=== PATIENT | male | born 1935 | race Caucasian/White ===

== ENCOUNTER 2017-03-15 11:24 | Inpatient (IN) ==
--- NOTE | 2017-03-15 11:40 | Emergency Department Note ---
Disposition Clinical Impression: Hypoxia Altered mental status Qualifiers: Altered mental status type: transient alteration of awareness Qualified Code(s) : R40.4 - Transient alteration of awareness Disposition: Admitted As Inpatient Condition: Fair Time of Disposition: 14:55 General Adult HPI - General Chief complaint: ED Altered Mental Status Stated complaint: AMS Time Seen by Provider: 03/15/17 11:29 Source: patient, EMS Mode of arrival: EMS Limitations: no limitations Nursing Notes Reviewed: Yes Vital Signs Reviewed: Yes - History of Present Illness HPI Narrative: Patient is a 81-year-old male with a past medical history of metastatic colon cancer, hypertension, diabetes, PID presenting to the emergency department by squad for altered mental status. According to squad while at home the patient was satting in the high 70's without oxygen is placed on oxygen and appears to have been improving since that time. On arrival to the ED the patient is alert and oriented 3. He states the reason he is coming to ED as His is only able to take care of him at home. He denies any complaints at this time other than diffuse pain which is cancer related. Pain Scale: 0 - Related Data Home Medications Medication Instructions Recorded Confirmed Aspirin Enteric Coated [Aspirin EC] 81 mg PO DAILY 02/16/17 03/15/17 Carvedilol [Coreg] 25 mg PO BID 02/16/17 03/15/17 Furosemide [Lasix] 20 mg PO DAILY 02/16/17 03/15/17 Losartan Potassium [Cozaar] 100 mg PO DAILY 02/16/17 03/15/17 Simvastatin [Zocor] 20 mg PO HS 02/16/17 03/15/17 amLODIPine [Norvasc] 5 mg PO DAILY 02/16/17 03/15/17 Previous Rx's Medication Instructions Recorded Docusate [Colace] 200 mg PO BID #120 capsule 03/03/17 Magic Mouthwash [Magic Mouthwash 10 ml PO QID PRN #240 ml 03/04/17 BLM] Saliva Stimulant [Biotene 44.3 ml MM TID #1 bottle 03/04/17 Moisturizing Rinse] Oxycodone HCl 10 - 20 mg PO Q4H PRN #150 tab 03/09/17 Allergies Allergy/AdvReac Type Severity Reaction Status Date / Time Penicillins Allergy Severe Hives Verified 03/15/17 15:24 sulfamethoxazole AdvReac Vomiting Verified 03/15/17 15:24 [From Bactrim] trimethoprim [From Bactrim] AdvReac Vomiting Verified 03/15/17 15:24 All systems ED: reviewed and negative except as stated. Review of Systems: As Per HPI Constitutional: Denies: fever Eyes: Denies: vision change ENT ED: Denies: throat pain, congestion Cardiovascular: Denies: chest pain, palpitations, dyspnea on exertion, edema, syncope Respiratory: Denies: cough, dyspnea, wheezes Gastrointestinal: Denies: abdominal pain, nausea, vomiting, diarrhea Genitourinary: Denies: dysuria Musculoskeletal: Denies: neck pain Integumentary: Denies: rash, abrasion Neurological: Denies: headache, weakness, numbness, paresthesias Past Medical History - Past Medical History Attestation: Yes The following information was validated with the patient. Medical history: Reports: cancer, diabetes, hyperlipidemia, hypertension, peripheral artery disease, other Psychiatric history: Reports: no psych history - Social History Smoking Status: Former smoker Smokeless Tobacco Status: No Alcohol use: Reports: occasionally Drug use: Reports: none Physical Exam Patient does not appear to be in acute distress at this time. He answers my questions appropriately. - General Limitations: no limitations General appearance: alert, in no apparent distress - Head Head exam: atraumatic, normocephalic, normal inspection - Eye Eye exam: Present: PERRL, EOMI - ENT ENT exam: normal exam, normal oropharynx, mucous membranes moist - Neck Neck exam: Present: normal inspection, full ROM, trachea midline. Absent: tenderness - Chest Chest inspection: Present: normal inspection, symmetric chest wall rise. Absent : tenderness - Respiratory Respiratory exam: Present: normal lung sounds bilaterally. Absent: respiratory distress, wheezes - Cardiovascular Cardiovascular exam: Present: regular rate, normal rhythm, normal heart sounds, +S1, +S2 - Abdominal Exam Abdominal exam: Present: soft, Non-Tender, normal bowel sounds - Extremities Exam Extremities exam: Present: normal inspection, full ROM, normal capillary refill. Absent: tenderness, pedal edema - Neurological Exam Neurological exam: Present: alert, oriented X3, CN II-XII intact - Expanded Neurological Exam Patient oriented to: Present: person, place, time Speech: Present: fluid speech Cranial nerves: EOM function (II, III, IV, ): Normal, facial sensation (V): Normal, facial palsy (VII): Normal, gag reflex (IX): Normal, spinal accessory function (XI): Normal, tongue deviation (XII): Normal Cerebellar function: finger to nose: Normal, heel to mauricio: Normal Motor strength - LUE: 5/5 Motor strength - RUE: 5/5 Motor strength - LLE: 5/5 Motor strength - RLE: 5/5 Sensory exam upper extremity: light touch: Normal Sensory exam lower extremity: light touch: Normal Coma Scale Eye Opening: Spontaneous Coma Scale Motor Response: Obeys Commands Coma Scale Verbal Response: Oriented Coma Scale Total: 15 - Psychiatric Psychiatric exam: Present: normal affect, normal mood - Skin Skin exam: Present: warm, dry, intact, normal color Course Course Narrative: Patient's is not bedside. I have discussed with her. She states that the patient was diagnosed with colon cancer 3 weeks ago with metastases to the liver and bone. She states that since the patient's diagnosis he has been declining. She states that he is having hallucinations daily, that is becoming more difficult for her to take care of on her own. She states that she is unable to move him from his bed to his chair and has had a call squad several times to help. She states that this morning the patient was having hallucinations and altered so she called squad in which they found his pulse ox to be in the low 80s and which the patient is not normally on any oxygen requirement. She states that the patient currently sees Dr. Denney for oncology and he was due for his fourth radiation treatment today. And altered mental status workup will be performed and also social work will be consulted. - Reevaluation(s) Reevaluation #1: Patient does go hypoxic when taken off oxygen and drops down to the low 80s/ upper 70s mostly when he is falling asleep. Patient's hemoglobin was 10.5 which is chronic and his creatinine was elevated at 2.3 which is also chronic when compared to old labs. His labs were otherwise unremarkable. His chest x- ray was negative. A VQ scan was performed due to the patient's kidney function which that showed low probability for PE. I discussed these results with the patient's family that have a cause for the patient's hypoxia at this time. The patient's family stress. They are unable to take care of the patient at home due to his declining condition which it should be to his cancer. I discussed plan to admit the patient for hypoxia, altered mental status, and inability to take care of the patient at home and the patient's family agrees with this plan. Time: 15:08 Vital Signs Temperature 98.1 F 03/15/17 11:25 Pulse Rate 80 03/15/17 11:25 Respiratory Rate 20 03/15/17 11:25 Blood Pressure 117/69 03/15/17 11:25 O2 Sat by Pulse Oximetry 96 03/15/17 11:25 Temperature 98.1 F 03/15/17 11:25 Pulse Rate 75 03/15/17 15:15 Respiratory Rate 20 03/15/17 15:15 Blood Pressure 134/65 03/15/17 15:15 O2 Sat by Pulse Oximetry 97 03/15/17 15:15 Oxygen Delivery Oxygen Delivery Nasal Cannula Medical Decision Making - Medical Records Medical records reviewed: Yes I reviewed the patient's medical records. - Lab Data Lab results reviewed: Yes I reviewed the patient's lab results. Result diagrams: 03/15/17 11:49 03/15/17 11:49 Lab Results 03/15/17 03/15/17 03/15/17 Range/Units 11:49 11:49 11:49 WBC 9.9 (4.3-11.1) K/mcL RBC 3.51 L (4.19-5.50) M/mcL Hgb 10.5 L (12.9-16.9) g/dL Hct 32.4 L (37.5-50.1) % MCV 92.3 (83.0-100.0) fL MCH 29.9 (28.0-33.3) pg MCHC 32.4 (31.6-35.5) g/dL RDW 14.6 H (11.5-14.5) % Plt Count 244 (140-400) K/mcL MPV 9.2 L (9.4-12.4) fL Immature Gran % 1.1 (0-4) % Seg Neutrophils % 79.2 % Lymphocytes % 9.8 % Monocytes % 8.7 % Eosinophils % 0.9 % Basophils % 0.3 % Neutrophils # 7.9 (1.6-8.9) K/mcL Lymphocytes # 1.0 (0.6-4.6) K/mcL Monocytes # 0.9 (0.0-1.3) K/mcL Eosinophils # 0.1 (0.0-0.6) K/mcL Basophils # 0.0 (0.0-0.2) K/mcL PT 12.4 H (9.4-12.1) Seconds INR 1.1 APTT 24.0 L (26.0-36.0) Seconds Sodium 138 (136-145) mEq/L Potassium 5.3 H (3.5-5.1) mEq/L Chloride 105 (98-107) mEq/L Carbon Dioxide 23 (23-29) mEq/L BUN 79 H (8-23) mg/dL Creatinine 2.35 H (0.70-1.30) mg/dL Est GFR ( Amer) 32 L (> 60) Est GFR (Non-Af Amer) 27 L (> 60) BUN/Creatinine Ratio 34 H (6-26) Glucose 232 H (70-105) mg/dL Calculated Osmolality 317 H (280-300) Calcium 8.0 L (8.6-10.3) mg/dL Total Bilirubin 0.9 (0.3-1.0) mg/dL Direct Bilirubin 0.3 H (0.0-0.2) mg/dL Indirect Bilirubin 0.6 (0.0-1.2) mg/dL AST 70 H (13-39) Units/L ALT 34 (7-52) Units/L Alkaline Phosphatase 71 (34-104) Units/L Troponin I (< 0.04) ng/mL Serum Total Protein 7.3 (6.4-8.9) g/dL Albumin 3.5 (3.5-5.7) g/dL Globulin 3.8 H (2.4-3.5) g/dL Albumin/Globulin Ratio 0.9 L (1.1-2.2) Urine Color (Yellow) Urine Clarity (Clear) Urine pH (5.0-8.0) pH Units Ur Specific [place] (1.010-1.025) Urine Protein (Neg-Trace) mg/dL Urine Glucose (UA) (Normal) mg/dL Urine Ketones (Negative) mg/dL Urine Blood (Negative) Urine Nitrite (Negative) Urine Bilirubin (Negative) Urine Urobilinogen (Normal) mg/dL Ur Leukocyte Esterase (Negative) Urine Microscopic RBC (0-3) per hpf Urine Microscopic WBC (0-3) per hpf Ur Squamous Epith Cells (None-Few) per lpf Urine Bacteria (None-Few) per hpf Hyaline Casts (None-Few) per lpf Ur Culture Indicated? (NO) 03/15/17 03/15/17 Range/Units 11:49 13:19 WBC (4.3-11.1) K/mcL RBC (4.19-5.50) M/mcL Hgb (12.9-16.9) g/dL Hct (37.5-50.1) % MCV (83.0-100.0) fL MCH (28.0-33.3) pg MCHC (31.6-35.5) g/dL RDW (11.5-14.5) % Plt Count (140-400) K/mcL MPV (9.4-12.4) fL Immature Gran % (0-4) % Seg Neutrophils % % Lymphocytes % % Monocytes % % Eosinophils % % Basophils % % Neutrophils # (1.6-8.9) K/mcL Lymphocytes # (0.6-4.6) K/mcL Monocytes # (0.0-1.3) K/mcL Eosinophils # (0.0-0.6) K/mcL Basophils # (0.0-0.2) K/mcL PT (9.4-12.1) Seconds INR APTT (26.0-36.0) Seconds Sodium (136-145) mEq/L Potassium (3.5-5.1) mEq/L Chloride (98-107) mEq/L Carbon Dioxide (23-29) mEq/L BUN (8-23) mg/dL Creatinine (0.70-1.30) mg/dL Est GFR ( Amer) (> 60) Est GFR (Non-Af Amer) (> 60) BUN/Creatinine Ratio (6-26) Glucose (70-105) mg/dL Calculated Osmolality (280-300) Calcium (8.6-10.3) mg/dL Total Bilirubin (0.3-1.0) mg/dL Direct Bilirubin (0.0-0.2) mg/dL Indirect Bilirubin (0.0-1.2) mg/dL AST (13-39) Units/L ALT (7-52) Units/L Alkaline Phosphatase (34-104) Units/L Troponin I 0.03 (< 0.04) ng/mL Serum Total Protein (6.4-8.9) g/dL Albumin (3.5-5.7) g/dL Globulin (2.4-3.5) g/dL Albumin/Globulin Ratio (1.1-2.2) Urine Color Yellow (Yellow) Urine Clarity Clear (Clear) Urine pH 5.5 (5.0-8.0) pH Units Ur Specific [place] 1.017 (1.010-1.025) Urine Protein Trace (Neg-Trace) mg/dL Urine Glucose (UA) Normal (Normal) mg/dL Urine Ketones Trace H (Negative) mg/dL Urine Blood Negative (Negative) Urine Nitrite Negative (Negative) Urine Bilirubin Small H (Negative) Urine Urobilinogen Normal (Normal) mg/dL Ur Leukocyte Esterase Negative (Negative) Urine Microscopic RBC 5-15 H (0-3) per hpf Urine Microscopic WBC 0-3 (0-3) per hpf Ur Squamous Epith Cells Moderate H (None-Few) per lpf Urine Bacteria None Seen (None-Few) per hpf Hyaline Casts None Seen (None-Few) per lpf Ur Culture Indicated? NO (NO) - Radiology Data Radiology results reviewed: Yes I reviewed the patient's radiology results. Chest X-Ray 03/15/17 11:34 IMPRESSION: No acute process. D/ / Mauricio Bell MD / Mauricio Bell MD Interpreting Provider: Mauricio Bell MD Head CT 03/15/17 11:35 IMPRESSION: No acute intracranial abnormality. Chronic small vessel disease. D/ / Aakash Alford MD / Aakash Alford MD Interpreting Provider: Aakash Alford MD Pulmonary Perfusion Imaging 03/15/17 13:29 IMPRESSION: Very low probability for pulmonary embolism. D/ / Dk Ny MD / Dk Ny MD Interpreting Provider: Dk Ny MD - EKG Data EKG #1 EKG attestation: Yes I reviewed and interpreted this EKG. EKG results narrative: Patient's EKG done at 11:42 shows sinus rhythm at a rate of 75 bpm. Normal axis. NH is 190, QRS is 94, QT is 442, and QTc is 471 these are within normal limits. No ST elevations, depressions or Q waves. No old EKG for comparison. Attestation Statement - Attestation Attestation: I examined this patient and my medical decision-making was reviewed with the Resident Physician. I agree with the documented findings, disposition and treatment plan as described except to the extent set forth below. Patient presents to the emergency department with generalized weakness. Low pulse ox. Confusion. EMS states his oxygen saturation was 80 on the arrived. Initially begun treatment for the colon cancer. Scheduled for radiation therapy today. Family is having trouble taking care of him at home. On examination he is awake alert and oriented 3 for us. Satting in the mid 90s on 2 L. Clear. Plan. Altered mental status workup. The patient is not altered here. His oxygenation improves with O2. VQ scan is very low probability for PE. Family unable to care from a home. We will admit for hypoxia and altered mental status.
[2017-03-15 12:04] LABS: Basophils % 0.3 %; Eosinophils # 0.1 K/mcL (0.0-0.6); Eosinophils % 0.9 %; Hematocrit 32.4 % (37.5-50.1); Hemoglobin 10.5 g/dL (12.9-16.9); Immature Granulocytes % 1.1 % (0-4); Lymphocytes % 9.8 %; Mean Corpuscular HGB Conc 32.4 g/dL (31.6-35.5); Mean Corpuscular Hemoglobin 29.9 pg (28.0-33.3); Mean Corpuscular Volume 92.3 fL (83.0-100.0); Mean Platelet Volume 9.2 fL (9.4-12.4); Monocytes # 0.9 K/mcL (0.0-1.3); Monocytes % 8.7 %; Neutrophils # 7.9 K/mcL (1.6-8.9); Platelet Count 244 K/mcL (140-400); Red Blood Count 3.51 M/mcL (4.19-5.50); Red Cell Distribution Width 14.6 % (11.5-14.5); Segmented Neutrophils % 79.2 %
[2017-03-15 12:10] LABS: INR 1.1; Prothrombin Time 12.4 Seconds (9.4-12.1)
[2017-03-15 12:19] LABS: Albumin 3.5 g/dL (3.5-5.7); Bilirubin,Direct 0.3 mg/dL (0.0-0.2); Bilirubin,Indirect 0.6 mg/dL (0.0-1.2); Bilirubin,Total 0.9 mg/dL (0.3-1.0); Potassium 5.3 mEq/L (3.5-5.1)
[2017-03-15 12:25] LABS: Albumin/Globulin Ratio 0.9 (1.1-2.2); Globulin 3.8 g/dL (2.4-3.5); Total Protein 7.3 g/dL (6.4-8.9)
[2017-03-15 13:28] LABS: Bilirubin,Urine Small (Negative); Blood,Urine Negative (Negative); Clarity,Urine Clear (Clear); Color,Urine Yellow (Yellow); Glucose,Urine (UA) Normal (Normal); Ketones,Urine Trace mg/dL (Negative); Leukocyte Esterase,Urine Negative (Negative); Nitrite,Urine Negative (Negative); PH,Urine 5.5 pH Units (5.0-8.0); Protein,Urine Trace mg/dL (Neg-Trace); Specific Gravity,Urine 1.017 (1.010-1.025); Urobilinogen,Urine Normal (Normal)
[2017-03-15 13:32] LABS: Bacteria,Urine None Seen per hpf (None-Few); Hyaline Casts,Urine None Seen per lpf (None-Few); Squamous Epithelial Cell,Urine Moderate per lpf (None-Few); WBC,Urine 0-3 per hpf (0-3)
[2017-03-15] MEDS ORDERED: *HR* OxyCODONE/APAP 10/325 TABLET PO STA (15:14)
[2017-03-15] MEDS ORDERED: Acetaminophen 325 MG TABLET PO PRN (20:49)
[2017-03-15] MEDS ORDERED: Ondansetron 4 MG/2 ML VIAL IVP PRN (20:49)
[2017-03-15] MEDS ORDERED: Naloxone 0.4 MG/ML INJ IVP PRN (20:49)
[2017-03-15] MEDS ORDERED: Magic Mouthwash 10 ML UD Cup PO PRN (20:55)
[2017-03-15] MEDS ORDERED: 0.9 % Sodium Chloride 1,000 ML IVC SCH (21:00)
[2017-03-15] MEDS ORDERED: Dextrose Gel 15 GM/37.5 ML TUBE PO PRN ×2 (21:04)
[2017-03-15] MEDS ORDERED: D5% in Water 1,000 ML IVC PRN (21:04)
[2017-03-15] MEDS ORDERED: *HR* Dextrose 50 % in Water (Syg) 50 ML SYRINGE IVP PRN (21:04)
--- NOTE | 2017-03-15 21:05 | Internal Med History&Physical ---
<Shayan Handy H - Last Filed: 03/15/17 22:28> Date of Encounter: 03/15/17 Internal Medicine - H&P: HPI History of present illness: Mr. Arguelles is a 81 year old male Internal Medicine - H&P: Meds Aspirin Enteric Coated [Aspirin EC] 81 mg PO DAILY 02/16/17 [History] Carvedilol [Coreg] 25 mg PO BID 02/16/17 [History] Furosemide [Lasix] 20 mg PO DAILY 02/16/17 [History] Losartan Potassium [Cozaar] 100 mg PO DAILY 02/16/17 [History] Simvastatin [Zocor] 20 mg PO HS 02/16/17 [History] amLODIPine [Norvasc] 5 mg PO DAILY 02/16/17 [History] Docusate [Colace] 200 mg PO BID #120 capsule 03/03/17 [Rx] Magic Mouthwash [Magic Mouthwash BLM] 10 ml PO QID PRN #240 ml 03/04/17 [Rx] Saliva Stimulant [Biotene Moisturizing Rinse] 44.3 ml MM TID #1 bottle 03/04/17 [Rx] Oxycodone HCl 10 - 20 mg PO Q4H PRN #150 tab 03/09/17 [Rx] 3 Allergy/AdvReac Type Severity Reaction Status Date / Time Penicillins Allergy Severe Hives Verified 03/15/17 15:24 sulfamethoxazole AdvReac Vomiting Verified 03/15/17 15:24 [From Bactrim] trimethoprim [From Bactrim] AdvReac Vomiting Verified 03/15/17 15:24 All Systems PM: A 10-system review of systems was performed and is negative for pertinent findings except as documented above in the HPI. - Constitutional Vitals: Temp Pulse Resp BP Pulse Ox 98.5 F 74 19 97/58 98 03/15/17 17:45 03/15/17 17:45 03/15/17 17:45 03/15/17 17:45 03/15/17 17:45 Internal Med - H&P Results - Labs CBC & Chem 7: 03/15/17 11:49 03/15/17 11:49 - Attending Attestation Acute metabolic encephalopathy possibly secondary to narcotics, possible aspiration pneumonitis/pneumonia Start Levaquin and Flagyl due to penicillin allergy and order CT scan of the chest, may discontinue antibiotics if no pneumonia days found Acute on chronic renal failure, consider possible obstruction, per Serrato catheter and continue IV fluids The patient will be admitted as inpatient, expected to stay more than 2 midnights. Full code for now. CODE STATUS will need to be reviewed with family in the morning Palliative care consulted, time spent on this admission 40 minutes. I have personally performed a face to face evaluation on this patient. I have reviewed and agree with the care plan. History and Exam by me shows: <IlyaAma Stephanie - Last Filed: 03/15/17 22:40> Date of Encounter: 03/15/17 Time of Encounter: 21:00 Assessment and Plan (1) Encephalopathy acute Current visit: Yes Status: Acute 1 patient was recently diagnosed with suspected colon cancer with metastasis to bone and liver approximately 3 weeks ago. He is being cared for by his at home patient is having some difficulty caring for patient on her own. CT of head was negative for any intracranial abnormalities Patient does see oncologist Dr. Denney. Upon reviewing notes it appears that he did decrease the patient's pain medication from Percocet to [place] since less sedating. 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 We will hold narcotics for now- Neuro checks Hypoxia is contributing factor CXR negative VQ scan low probability of PE Concerned for possible aspiration will obtain CT of chest will start on flagyl and levaquin, dt PCN allergy- DC if no pneumonia of CT -Aspiration precautions (2) Diabetes mellitus Current visit: Yes Status: Acute 1 Accu-Cheks q 6hrs with SSI NPO Qualifiers: Diabetes mellitus type: type 2 Diabetes mellitus complication status: with neurologic complications Diabetes mellitus complication detail: with unspecified neuropathy Diabetes mellitus specimen accessioner insulin use: with specimen accessioner use Qualified Code(s): E11.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 He is being followed by ID and oncology Dr. Denney. He is receiving radiation treatments to his right shoulder Since his diagnosis patient has continued to physically decline. He is unable to get up, has poor appetite his is his caregiver who is unable to lift or move the patient on her own. We will consult hospice social worker for discharge planning possible ECF placement We will consult palliative care concerning end-of-life needs as well as possible hospice Presently we will hold pain medication patient appears to be overly sedated at this time (4) Hyperkalemia Current visit: Yes Status: Acute Potassium is 5.3 no peaked T waves noted on EKG did doubt prolonged QTC. We will hold losartan for now will give gentle IV fluids overnight and recheck potassium Continuous cardiac monitoring (5) DVT prophylaxis Current visit: Yes Status: Acute Heparin subcutaneous (6) Apuji-zy-bceieyd kidney injury Current visit: Yes Status: Acute Creatinine presently 2.35-which has slowly climb over the past month Monitor intake and output and daily weights Avoid nephrotoxins Maintain MAP greater than [address] Serrato possible retention Give gentle IV fluids overnight Qualifiers: Acute renal failure type: unspecified Chronic kidney disease stage: stage 4 (severe) Qualified Code(s): N17.9 - Acute kidney failure, unspecified; N18.4 - Chronic kidney disease, stage 4 (severe); N18.4 - Chronic kidney disease , stage 4 (severe); N18.4 - Chronic kidney disease, stage 4 (severe); N18.4 - Chronic kidney disease, stage 4 (severe) Internal Medicine - H&P: HPI Chief complaint: AMS Admitted From: Emergency Dept Plans for Post Hospital Care: Home History of present illness: Mr. Arguelles is a 81 year old male with past medical history of arthritis DVT diabetes hyperlipidemia hypertension peripheral artery disease pulmonary embolus C Karm[place] carotid endarterectomy coronary artery bypass graft neuropathy metastatic colon cancer with liver and extensive bone metastases. Information is obtained from medical records due to patient's altered mental state. After review of records patient was diagnosed with probable metastatic colon cancer with liver and extensive bone metastases approximately 3 weeks ago. He is being treated by [facility] oncology Dr. Denney and has been receiving radiation treatments. He is being cared for at home by his . She expressed to the ER physician the patient has been declining since his diagnosis. He has been hallucinating and is difficult to care for on her own. She has had a call squad several times since she is unable to move him on her own. Today EMS was called due to patient's altered mental state. According to ER records upon their arrival patient was found with oxygen saturations in the 70s on room air. He was placed on oxygen which did improve his SPO2. Upon arrival to the ED he was alert and oriented. ER workup did reveal elevated creatinine however it seems to be around his baseline. He did have some hyperkalemia Chest x-rays were negative VQ scan was performed to rule out possible PE which was negative CT of head was negative for any intracranial abnormalities. EKG did reveal prolonged QTC at 471 The patient's oxygen saturation would continue to drop in oxygen removed. He has been admitted for further workup evaluation. Upon assessment patient is oriented to name and time he frequently comments that he is a home and has some difficulty staying awake during the conversation. Presently patient is hemodynamically stable Past Med Surg Social Fam HX - Past Medical History Medical history: cancer, diabetes, hyperlipidemia, hypertension, peripheral artery disease, other Psychiatric history: no psych history - Social History Smoking Status: Former smoker Smokeless Tobacco Status: No Alcohol use: occasionally Drug use: none - Family History Father Hx Family Cancer: Yes (liver cancer) ROS unobtainable: due to mental status All Systems PM: A 10-system review of systems was performed and is negative for pertinent findings except as documented above in the HPI. - Constitutional Vitals: Temp Pulse Resp BP Pulse Ox 98.5 F 74 19 97/58 98 03/15/17 17:45 03/15/17 17:45 03/15/17 17:45 03/15/17 17:45 03/15/17 17:45 General appearance: Present: A&O X 2 - Head Head exam: Present: atraumatic, normocephalic - Eye Eye exam: Present: PERRL, conjuntiva pink, sclera anicteric Pupils: Present: PERRL - Neck Neck exam general surgery: Present: supple, trachea midline. Absent: lymphadenopathy - Respiratory Respiratory exam: Present: CTAB. Absent: accessory muscle use, rales, rhonchi, wheezes - Cardiovascular Cardiovascular exam: Present: RRR, +S1, +S2. Absent: diastolic murmur, gallop, rubs, systolic murmur - GI/Abdominal GI/Abdominal exam: Present: normal bowel sounds, soft, no peritoneal signs. Absent: distended, tenderness - Extremities Exam Extremities exam: Present: warm, radial pulses palpable and symmetrical. Absent : calf tenderness, cyanotic, pedal edema - Neurological Exam Neurological exam: Present: CN II-XII intact, oriented X3, no focal deficits. Absent: pronater drift, facial droop, speech deficit - Skin Skin exam: Present: dry, intact Internal Med - H&P Results - Labs CBC & Chem 7: 03/15/17 11:49 03/15/17 11:49 - EKG Data EKG shows normal: sinus rhythm - EKG Data Prior EKG available for review: no EKG comments: 03/15/17 21:21 QTC 471 - Diagnostic Studies Other Images Additional comments: Chest X-Ray 03/15/17 11:34 IMPRESSION: No acute process. D/ / Mauricio Bell MD / Mauricio Bell MD Interpreting Provider: Mauricio Bell MD Head CT 03/15/17 11:35 IMPRESSION: No acute intracranial abnormality. Chronic small vessel disease. D/ / Aakash Alford MD / Aakash Alford MD Interpreting Provider: Aakash Alford MD Pulmonary Perfusion Imaging 03/15/17 13:29 IMPRESSION: Very low probability for pulmonary embolism. D/ / Dk Ny MD / Dk Ny MD Interpreting Provider: Dk Ny MD
[2017-03-15] MEDS ORDERED: Levofloxacin 750 MG/150 ML 750 MG/150 ML BAG IVPB SCH (23:00)
[2017-03-15] MEDS: Saliva Stimulant 100ml BOTTLE MM SCH (23:06)
[2017-03-16] MEDS: Insulin LISPRO 300 UNITS/3 ML VIAL SQ SCH ×4 (01:27→18:06)
[2017-03-16] MEDS: MetroNIDAZOLE 500 MG/100 ML 500 MG/100 ML BAG IVPB SCH ×3 (01:27→18:06)
[2017-03-16 07:13] LABS: Basophils % 0.1 %; Eosinophils % 0.2 %; Hematocrit 30.2 % (37.5-50.1); Hemoglobin 9.6 g/dL (12.9-16.9); Immature Granulocytes % 0.8 % (0-4); Lymphocytes # 0.8 K/mcL (0.6-4.6); Lymphocytes % 8.4 %; Mean Corpuscular HGB Conc 31.8 g/dL (31.6-35.5); Mean Corpuscular Hemoglobin 29.2 pg (28.0-33.3); Mean Corpuscular Volume 91.8 fL (83.0-100.0); Mean Platelet Volume 9.7 fL (9.4-12.4); Monocytes # 0.9 K/mcL (0.0-1.3); Monocytes % 9.7 %; Neutrophils # 7.4 K/mcL (1.6-8.9); Nucleated Red Blood Cells 0.2 /100 WBC (0); Platelet Count 236 K/mcL (140-400); Red Blood Count 3.29 M/mcL (4.19-5.50); Red Cell Distribution Width 14.9 % (11.5-14.5); Segmented Neutrophils % 80.8 %
[2017-03-16] MEDS ORDERED: Insulin LISPRO 300 UNITS/3 ML VIAL SQ SCH ×2 (07:30→21:00)
[2017-03-16 07:34] LABS: Calcium 7.6 mg/dL (8.6-10.3); Magnesium 2.9 mg/dL (1.6-2.6); Potassium 5.6 mEq/L (3.5-5.1)
[2017-03-16] MEDS: *HR* Heparin 5,000 UNIT/ML VIAL SQ SCH ×2 (07:52→18:06)
--- NOTE | 2017-03-16 08:37 | Palliative - Consult Note ---
<Don Gallegos - Last Filed: 03/16/17 09:57> Date of Encounter: 03/16/17 Time of Encounter: 08:37 - Assessment and Plan (1) Goals of care, counseling/discussion Current Visit: Yes Status: Acute Assessment and plan: Discussed with patient and /daughter over phone. Living Will filed with Dr. Denney, Oncology Code: Patient deferred discussion to (POA), reports patient doesn't want resuscitation, code status changed from Full Code to [id number]-DNI. Prior status: prior to acute change in mental status (more confused and hallucinations), was sharp and managing own medications and bills. ADLs were on his own with walker. Current status: more confused per family members and hallucinating Pain: Pain of back, right ribs/chest, and shoulders. Was prescribed oxycodone 10-20mg q4h prn, but reportedly from family patient has not been taking this medication, patient is unsure he took any pain medication recently. No current pain medication ordered while in hospital, patient otherwise appears comfortable laying in bed. Bowels: Regular bowel movements, not diarrhea, current bowel regimen ordered Family has expressed that they are unable to care for the patient at home anymore and the patient has expressed to them he would like to be in a fci. He has verbally expressed to me that he doesn't like them pulling/ tugging on him anymore. Reportedly prefers [facility] fci. (2) Altered mental status Current Visit: Yes Status: Acute Assessment and plan: Likely secondary to hypoxia, also resulting hallucinations vs acute on chronic kidney disease stage 4. Unlikely due to pain medication as patient mentioned he didn't take any and consistent with family report that he hasn't been taking any of the Oxycodone prescribed for pain. So far workup for hypoxia essentially negative and AMS has improved back to baseline just prior to admission, but is a change from baseline from a couple weeks ago. Continue workup per hospitalist. Qualifiers: Altered mental status type: transient alteration of awareness Qualified Code(s): R40.4 - Transient alteration of awareness (3) Colon cancer metastasized to multiple sites Current Visit: Yes Status: Acute Assessment and plan: Known history of colon cancer with mets to liver and bone. CT chest confirmed bony metastases and consistent with chest pain on exam. Was undergoing pallative radiation per Dr. Denney, family has expressed he has undergone 3 of 5 treatments with some improvement in shoulder pain. (4) Lppdp-bk-offuvhe kidney injury Current Visit: Yes Status: Acute Assessment and plan: Acute on chronic kidney disease stage 4. Continue per hospitalist. Qualifiers: Acute renal failure type: unspecified Chronic kidney disease stage: stage 4 (severe) Qualified Code(s): N17.9 - Acute kidney failure, unspecified; N18.4 - Chronic kidney disease, stage 4 (severe); N18.4 - Chronic kidney disease , stage 4 (severe); N18.4 - Chronic kidney disease, stage 4 (severe); N18.4 - Chronic kidney disease, stage 4 (severe) (5) Hyperkalemia, diminished renal excretion Current Visit: Yes Status: Acute Assessment and plan: Elevated at 5.6, likely secondary to ckd. Continue per hospitalist. (6) History of prostate cancer Current Visit: Yes Status: Chronic Palliative-CN HPI - Data of Consult Consult date: 03/15/17 Requesting Physician: Erasmo Bee MD Primary Care Provider: Brea Franco - Consult Narrative Reason for consult: Goals of care/code History of present illness: Mr. Arguelles is a 81 year old male with history of colon cancer with mets to liver and bone diagnosed Feb 2017 undergoing radiation therapy per Dr. Denney, hx of previous prostate cancer in 2000, CABG, hx of PE/dvt, peripheral artery disease, CAD s/p CABG, neuropathy, hld, htn, and diabetes who presented to the ED via EMS for altered mental status. Spoke with patient at bedside this morning, appears to be alert and oriented x4, but confused on questioning, unable to answer questions consistently and appropriately. Patient reports doing well overnight, no new problems other than soiling himself. Asked the patient if he called the nurse, reportedly did, but alarm and nurse were not notified. Patient reports he lives at home with his Gustavo. On questioning was uncertain if he had anything to eat or if he slept at all last night. He does report back pain and shoulder pain that is achy to sharp/stabbing at times. He was unsure if he was taking any pain medication at home for this. Patient has deferred questions about code status over to his . Spoke to his (Lauryn) and daughter (Laina) over the phone this morning, will be dropping by to visit later this morning. They report the patient was doing well a couple weeks ago, was mentally sharp and active around the house rebuilding electrical equipment and lifts, using walker to ambulate. Reports a sudden change in mental status where he is more confused and hallucinating over the past week. Before this change he was also managing his own medications and bills as well. They have mentioned that though the pain medication was filled, which is consistent with OARRS, oxycodone 10-20mg q4h prn, the patient has not been taking the medication and reports he hasn't taken any over the past couple days. They report he has been hallucinating people and mice on the [place], even bizarre hallucination of a wire that may cut off their head. and daughter's main concern is why the change in mental status, the hallucinating, and now the problem with oxygenation. Additional goal of maintaining a hospital stay long enough to qualify for fci care as they are unable to care for him at home and patient has expressed he doesn't like them pulling/tugging him at home. reports that they have the patient's living will at Dr. Denney's office. Confirmed that they have had the discussion and the patient would not want cpr/ intubation. Confirmed code status which has been changed to DNR-CCA-DNI. CC: Erasmo Bee MD Past Med Surg Social Fam HX - Past Medical History Medical history: cancer, diabetes, hyperlipidemia, hypertension, peripheral artery disease, other Psychiatric history: no psych history - Social History Smoking Status: Former smoker Smokeless Tobacco Status: No Alcohol use: occasionally Drug use: none - Family History Father Hx Family Cancer: Yes (liver cancer) Medications and Allergies Aspirin Enteric Coated [Aspirin EC] 81 mg PO DAILY 02/16/17 [History] Carvedilol [Coreg] 25 mg PO BID 02/16/17 [History] Furosemide [Lasix] 20 mg PO DAILY 02/16/17 [History] Losartan Potassium [Cozaar] 100 mg PO DAILY 02/16/17 [History] Simvastatin [Zocor] 20 mg PO HS 02/16/17 [History] amLODIPine [Norvasc] 5 mg PO DAILY 02/16/17 [History] Docusate [Colace] 200 mg PO BID #120 capsule 03/03/17 [Rx] Magic Mouthwash [Magic Mouthwash BLM] 10 ml PO QID PRN #240 ml 03/04/17 [Rx] Saliva Stimulant [Biotene Moisturizing Rinse] 44.3 ml MM TID #1 bottle 03/04/17 [Rx] Oxycodone HCl 10 - 20 mg PO Q4H PRN #150 tab 03/09/17 [Rx] 3 Allergy/AdvReac Type Severity Reaction Status Date / Time Penicillins Allergy Severe Hives Verified 03/15/17 15:24 sulfamethoxazole AdvReac Vomiting Verified 03/15/17 15:24 [From Bactrim] trimethoprim [From Bactrim] AdvReac Vomiting Verified 03/15/17 15:24 ROS unobtainable: due to mental status Palliative Care-Exam - Constitutional Vitals: Temp Pulse Resp BP Pulse Ox 97.3 F L 100 16 109/61 91 03/16/17 07:45 03/16/17 07:45 03/16/17 07:45 03/16/17 07:45 03/16/17 07:45 General appearance: Present: no acute distress Exam: alert and oriented x 4, but inconsistent and inappropriate answers to some questioning. - Head Head Exam: Present: atraumatic, normal inspection, normocephalic - Eye Eye exam: Present: EOMI, PERRL - ENT ENT exam: Present: mucous membranes dry, normal external ear exam Additional comments: thrush noted - Neck Neck exam: Present: full ROM. Absent: tenderness - Respiratory Respiratory exam: Present: chest wall tenderness (chest wall tenderness to palpation on right upper, Left nontender), CTAB. Absent: rales, rhonchi, wheezes, tachypnea - Cardiovascular Cardiovascular exam: Present: RRR, +S1, +S2 - GI/Abdominal Exam GI/Abdominal exam: Present: normal bowel sounds, soft. Absent: tenderness - Catheter Type: Urethral (Serrato) - Extremities Exam Extremities exam: Present: normal inspection. Absent: pedal edema - Back Exam Back exam: Present: paraspinal tenderness, vertebral tenderness - Neurological Exam Neurological exam: Present: alert (but confused), oriented X3 (but confused), strengths equal and symetr throughout - Psychiatric Psychiatric exam: Present: normal affect, normal mood - Skin Skin exam: Present: dry, intact, normal color, warm Internal Medicine - CN: Reslt - Labs CBC & Chem 7: 03/16/17 05:45 03/16/17 05:45 Labs: Short CBC 03/16/17 Range/Units 05:45 WBC 9.2 (4.3-11.1) K/mcL Hgb 9.6 L (12.9-16.9) g/dL Hct 30.2 L (37.5-50.1) % Plt Count 236 (140-400) K/mcL Neutrophils # 7.4 (1.6-8.9) K/mcL BMP 03/16/17 05:45 Sodium 137 Potassium 5.6 H Chloride 106 Carbon Dioxide 22 L BUN 89 H Creatinine 2.64 H Glucose 98 Calcium 7.6 L - ABG Interpretation ABG results: PT/INR, D-dimer PT 12.4 Seconds (9.4-12.1) H 03/15/17 11:49 Consult Discharge Plan - Plan Referrals: Brea Franco [Primary Care Provider] - Palliative Quality Palliative Quality: Screen for Code Status: Yes, Screen for Goals of Care: Yes, Screen for Pain: Yes, If Pain Regimen Started, Initiate Bowel Regimen: Yes, Screen for Nausea/Vomitting: Yes <Ravindra Mills - Last Filed: 03/16/17 11:13> Date of Encounter: 03/16/17 - Assessment and Plan (1) Encephalopathy acute Current Visit: Yes Status: Acute Assessment and plan: As noted by hospitalist this is undoubtedly multifactorial. However our investigation reveals the patient's been off his pain meds possibly for several days at least more than 24-48 hours. Therefore I would recommend if the patient is having pain that he be restarted at a lower dose of his oxycodone perhaps 5 mg every 4 hours when necessary. Palliative-CN HPI - Data of Consult Requesting Physician: Erasmo Bee MD Primary Care Provider: Brea Franco - Consult Narrative History of present illness: Mr. Arguelles is a 81 year old male CC: Erasmo Bee MD Palliative Care-Exam - Constitutional Vitals: Temp Pulse Resp BP Pulse Ox 97.3 F L 100 16 109/61 91 03/16/17 07:45 03/16/17 07:45 03/16/17 07:45 03/16/17 07:45 03/16/17 07:45 Internal Medicine - CN: Reslt - Labs CBC & Chem 7: 03/16/17 05:45 03/16/17 05:45 Labs: Short CBC 03/16/17 Range/Units 05:45 WBC 9.2 (4.3-11.1) K/mcL Hgb 9.6 L (12.9-16.9) g/dL Hct 30.2 L (37.5-50.1) % Plt Count 236 (140-400) K/mcL Neutrophils # 7.4 (1.6-8.9) K/mcL BMP 03/16/17 05:45 Sodium 137 Potassium 5.6 H Chloride 106 Carbon Dioxide 22 L BUN 89 H Creatinine 2.64 H Glucose 98 Calcium 7.6 L - ABG Interpretation ABG results: PT/INR, D-dimer PT 12.4 Seconds (9.4-12.1) H 03/15/17 11:49 - Attending Attestation I examined this patient and my medical decision-making was reviewed with the Resident Physician. I agree with the documented findings, disposition and treatment plan as described except to the extent set forth below. Palliative Quality Code Status: 03/16/17 09:13 CODE [Resuscitation Status: Active] [RES] Routine Comment: confirmed 03/16/17 Resuscitation Status: [id number]
[2017-03-16] MEDS ORDERED: amLODIPine 5 MG TABLET PO SCH (09:00)
[2017-03-16] MEDS: Aspirin Enteric Coated 81 MG Tablet PO SCH (09:39)
[2017-03-16] MEDS: Saliva Stimulant 100ml BOTTLE MM SCH ×3 (09:39→22:03)
--- NOTE | 2017-03-16 10:39 | Electrocardiograph Report ---
[facility] Test Date: 2017-03-15 Pat Name: Lopez Arguelles Department: 104 Room: 3B41 Gender: M [employer] Workforce Developer And Manager: LINDA : 1935 Requested By: Abel Goldberg Order Number: [id number] Ze MD: Jamin Hoskins MD Measurements Intervals [place] Rate: 75 P: 42 MA: 190 QRS: -15 QRSD: 94 T: 13 QT: 442 QTc: 471 Interpretive Statements SINUS RHYTHM PROLONGED QT INTERVAL Electronically Signed On 03-16-2017 10:37:44 EST by Jamin Hoskins MD
--- NOTE | 2017-03-16 18:10 | Internal Med Progress Note ---
Date of Encounter: 03/16/17 Time of Encounter: 11:00 - Assessment and plan (1) Colon cancer metastasized to multiple sites Current Visit: Yes Status: Acute Assessment and plan: -Patient with history of colon cancer with metastases to liver and bone managed by Dr. Denney (hematology/oncology) (2) Bone metastases Current Visit: No Status: Acute Assessment and plan: -Patient with history of colon cancer with metastases to liver and bone managed by Dr. Denney (hematology/oncology) (3) Goals of care, counseling/discussion Current Visit: Yes Status: Acute Assessment and plan: -Discussed with family about goals of care as in the discussion additional testing came up. -Consult hematology oncology for discussion about any further management or testing that will be needed. (4) DVT prophylaxis Current Visit: Yes Status: Acute Assessment and plan: Heparin subcutaneous - Subjective Interval history: Patient resting comfortably in bed this afternoon on examination. - Constitutional Vitals: Temp Pulse Resp BP Pulse Ox 97.5 F L 76 19 96/50 93 03/16/17 15:43 03/16/17 15:43 03/16/17 15:43 03/16/17 15:43 03/16/17 15:43 General appearance: Present: A&O X 2 - Respiratory Respiratory exam: Present: CTAB. Absent: accessory muscle use, rales, rhonchi, wheezes - Cardiovascular Cardiovascular exam: Present: RRR, +S1, +S2. Absent: diastolic murmur, gallop, rubs, systolic murmur Internal Medicine: Result - Labs CBC & Chem 7: 03/16/17 05:45 03/16/17 05:45 Labs: Short CBC 03/16/17 Range/Units 05:45 WBC 9.2 (4.3-11.1) K/mcL Hgb 9.6 L (12.9-16.9) g/dL Hct 30.2 L (37.5-50.1) % Plt Count 236 (140-400) K/mcL Neutrophils # 7.4 (1.6-8.9) K/mcL BMP 03/16/17 05:45 Sodium 137 Potassium 5.6 H Chloride 106 Carbon Dioxide 22 L BUN 89 H Creatinine 2.64 H Glucose 98 Calcium 7.6 L - ABG Interpretation ABG results: PT/INR, D-dimer PT 12.4 Seconds (9.4-12.1) H 03/15/17 11:49 Consult Discharge Plan - Plan Referrals: Brea Franco [Primary Care Provider] -
[2017-03-16] MEDS: *HR* OxyCODONE Immed Rel 5 MG TABLET PO PRN (18:31)
[2017-03-17] MEDS: MetroNIDAZOLE 500 MG/100 ML 500 MG/100 ML BAG IVPB SCH ×4 (00:22→23:30)
[2017-03-17] MEDS: Insulin LISPRO 300 UNITS/3 ML VIAL SQ SCH ×4 (00:23→18:29)
[2017-03-17] MEDS: *HR* Heparin 5,000 UNIT/ML VIAL SQ SCH ×2 (06:17→18:32)
[2017-03-17] MEDS: *HR* Promethazine 25 MG/ML VIAL IVP PRN (09:17)
[2017-03-17] MEDS: Aspirin Enteric Coated 81 MG Tablet PO SCH (09:18)
--- NOTE | 2017-03-17 11:01 | Oncology Inp Progress Note ---
Date of Encounter: 03/17/17 Time of Encounter: 15:00 Oncology: Subj Interval history: Patient drowsy at this time, likely due to phenergan/pain medication administration, will arouse to stimulation momentarily but quickly falls back to sleep. Patients and daughter at bedside. - Constitutional Vitals: Vital Signs Temp Pulse Resp BP Pulse Ox 03/17/17 07:09 98.7 F 96 16 102/53 95 03/17/17 03:46 97.8 F 102 15 104/40 96 03/16/17 23:42 98.4 F 77 20 92/49 92 03/16/17 21:00 90 03/16/17 20:54 97.6 F 75 20 92/51 90 03/16/17 20:53 85/39 03/16/17 15:43 97.5 F L 76 19 96/50 93 03/16/17 11:49 98.1 F 75 19 117/55 92 Intake and Output 03/16/17 03/17/17 03/17/17 23:59 07:59 15:59 Intake Total 100 / 100 100 / 100 120 / 120 Output Total 300 / 300 0 / 0 Balance -200 / -200 100 / 100 120 / 120 Intake: IV Fluids 100 / 100 100 / 100 Flagyl Premix 500 MG/100 ML 500 100 / 100 100 / 100 mg In 100 ml @ 100 mls/hr IVPB Q8HR [facility] Rx#:[id number] Oral 0 / 0 120 / 120 Output: Urine 0 / 0 Catheter 300 / 300 Other: Meal Breakfast Percent of Meal Consumed 20% Stool Size Small Stool Consistency soft formed Stool Color Brown # Urine Diapers 0 # Bowel Movements 1 Weight 87.9 kg Blood Glucose* 206 141 Patient Weight 03/17/17 23:59 Weight 87.9 kg General appearance: no acute distress, no febrile - Head Head exam: Present: normal inspection - Eye Eye exam: Present: PERRL - Respiratory Respiratory exam: Present: CTAB. Absent: respiratory distress - Cardiovascular Cardiovascular exam: Present: RRR, +S1, +S2 - GI/Abdominal GI/Abdominal exam: Present: normal bowel sounds, soft. Absent: tenderness - Extremities Exam Extremities exam: Present: pedal edema Oncology: Obj Data - Labs CBC & Chem 7: 03/16/17 05:45 03/16/17 05:45 Labs: Laboratory Results - last 24 hr 03/16/17 03/16/17 03/16/17 07:11 12:18 16:12 POC Glucose 201 H 115 H 225 H 03/16/17 03/17/17 23:31 05:37 POC Glucose 206 H 141 H - ABG Interpretation ABG results: PT/INR, D-dimer PT 12.4 Seconds (9.4-12.1) H 03/15/17 11:49 Consult Discharge Plan - Plan Referrals: Brea Franco [Primary Care Provider] -
[2017-03-17] MEDS: *HR* OxyCODONE Immed Rel 5 MG TABLET PO PRN (11:07)
--- NOTE | 2017-03-17 12:10 | Palliative Progress Note ---
Date of Encounter: 03/17/17 Time of Encounter: 12:00 - Assessment and plan (1) Goals of care, counseling/discussion Current Visit: Yes Status: Acute Assessment and plan: Patient is DNRCC - A, DNI. Discussed case with Eduarda Magana from Oncology. Oncology to discuss goals of care for treatment with patient and family. Will await outcome of patient and family desires. Patient actively participating in Physical Therapy. (2) Altered mental status Current Visit: No Status: Acute Assessment and plan: Patient participated in therapy and tolerated with pain to neck and shoulders. Will likely need ECF for therapy at [place]. Qualifiers: Altered mental status type: transient alteration of awareness Qualified Code(s): R40.4 - Transient alteration of awareness (3) Colon cancer metastasized to multiple sites Current Visit: Yes Status: Acute Assessment and plan: Oncology consult completed. Family to make decision regarding treatment. - Time Spent With Patient Total time spent is greater than 50% in coordination of care (as documented) at patient's floor/unit and/or counseling patient: less than 15 minutes - Subjective Interval history: Patient in bed, just completed PT. Tolerated with stiffness and pain to neck and shoulders. Patient able to answer questions. - Constitutional Vitals: Abnormal lab results RBC 3.29 M/mcL (4.19-5.50) L 03/16/17 05:45 Hgb 9.6 g/dL (12.9-16.9) L 03/16/17 05:45 Hct 30.2 % (37.5-50.1) L 03/16/17 05:45 RDW 14.9 % (11.5-14.5) H 03/16/17 05:45 Nucleated RBCs/100 WBC 0.2 /100 WBC (0) H 03/16/17 05:45 PT 12.4 Seconds (9.4-12.1) H 03/15/17 11:49 APTT 24.0 Seconds (26.0-36.0) L 03/15/17 11:49 Potassium 5.6 mEq/L (3.5-5.1) H 03/16/17 05:45 Carbon Dioxide 22 mEq/L (23-29) L 03/16/17 05:45 BUN 89 mg/dL (8-23) H 03/16/17 05:45 Creatinine 2.64 mg/dL (0.70-1.30) H 03/16/17 05:45 Est GFR ( Amer) 28 (> 60) L 03/16/17 05:45 Est GFR (Non-Af Amer) 23 (> 60) L 03/16/17 05:45 BUN/Creatinine Ratio 34 (6-26) H 03/16/17 05:45 POC Glucose 141 (58-89) H 03/17/17 05:37 Calculated Osmolality 311 (280-300) H 03/16/17 05:45 Calcium 7.6 mg/dL (8.6-10.3) L 03/16/17 05:45 Magnesium 2.9 mg/dL (1.6-2.6) H 03/16/17 05:45 Direct Bilirubin 0.3 mg/dL (0.0-0.2) H 03/15/17 11:49 AST 70 Units/L (13-39) H 03/15/17 11:49 Globulin 3.8 g/dL (2.4-3.5) H 03/15/17 11:49 Albumin/Globulin Ratio 0.9 (1.1-2.2) L 03/15/17 11:49 Urine Ketones Trace mg/dL (Negative) H 03/15/17 13:19 Urine Bilirubin Small (Negative) H 03/15/17 13:19 Urine Microscopic RBC 5-15 per hpf (0-3) H 03/15/17 13:19 Ur Squamous Epith Cells Moderate per lpf (None-Few) H 03/15/17 13:19 - Head Head exam: Present: atraumatic, normal inspection, normocephalic - Eye Eye exam: Present: PERRL Pupils: Present: PERRL - ENT ENT exam: Present: mucous membranes moist - Respiratory Respiratory exam: Present: decreased breath sounds - Expanded Respiratory Exam Location: decreased breath sounds: Left, Right, Lower - Cardiovascular Cardiovascular exam: Present: RRR, +S1, +S2 - GI/Abdominal GI/Abdominal exam: Present: normal bowel sounds, soft - Extremities Exam Extremities exam: Present: normal inspection - Back Exam Back exam: Present: tenderness - Neurological Exam Neurological exam: Present: alert - Psychiatric Psychiatric exam: Present: flat affect - Skin Skin exam: Present: pallor, warm Palliative Quality Palliative Quality: Screen for Code Status: Yes, Screen for Goals of Care: Yes, Screen for Pain: Yes, If Pain Regimen Started, Initiate Bowel Regimen: Yes, Screen for Nausea/Vomitting: Yes Code Status: 03/16/17 09:13 CODE [Resuscitation Status: Active] [RES] Routine Comment: confirmed 03/16/17 Resuscitation Status: [id number] - Labs CBC & Chem 7: 03/16/17 05:45 03/16/17 05:45 Labs: Laboratory Results - last 24 hr 03/16/17 03/16/17 03/16/17 07:11 12:18 16:12 POC Glucose 201 H 115 H 225 H 03/16/17 03/17/17 23:31 05:37 POC Glucose 206 H 141 H - ABG Interpretation ABG results: PT/INR, D-dimer PT 12.4 Seconds (9.4-12.1) H 03/15/17 11:49 Consult Discharge Plan - Plan Referrals: Brea Franco [Primary Care Provider] -
[2017-03-17] MEDS: Saliva Stimulant 100ml BOTTLE MM SCH ×3 (14:04→22:13)
--- NOTE | 2017-03-17 16:40 | Oncology Inp Consult Note ---
Date of Encounter: 03/17/17 Time of Encounter: 15:00 Assessment and Plan (1) Colon cancer metastasized to multiple sites Status: Acute Assessment and plan: I had a detailed discussion summarizing treatment plan as outlined by treating oncologist Dr. Denney along with a discussion of the pathological and radiological results consistent with colon cancer with widespread metastatic disease to bone and liver. Prior to recent decline in performance/mental status treatment plan consisted of initiation of palliative dose attenuated chemotherapy following palliative radiation which patient has partially completed prior to his hospitalization. Recently, patients appetite has declined, his performance status has further declined he is now unable to get out of bed, his is unable to care for him at home, and he is increasingly confused/having hallucinations. We discussed options of pursuing aggressive treatment which would include further exploration of his confusion/AMS with further MRI imaging to assess for possible brain metastasis along with aggressive rehabilitation with the hope to increase functional status to the point that he would be able to tolerate palliative chemotherapy vs. taking comfort care approach which would include treatment of symptoms and pain, not pursuing chemotherapy treatment and a focus on quality of life measures. states she is not interested in having patient pursue chemotherapy treatment at this juncture, she also states this is the patients desire as well following recent conversations with him, and given his current decline and ECOG PS 4 he would not be a suitable candidate for chemo tx at this given time. After further discussion and explanation regarding the comfort care approach, she wishes to have patient pursue ECF placement and forgo chemo treatments. She is interested in finishing palliative radiation treatments as radiation has helped to relieve pain to right shoulder. Daughter present during conversation agrees with this comfort care approach. Discussed the above conversation with palliative team who will assist in further discharge and coordination with patient and patients family. - Data of Consult Patient: known to practice within the last 3 years Requesting Physician: Chris Blackwell Primary Care Provider: Brea Franco - Consult Narrative History of present illness: Mr. Arguelles is a 81 year old male with past medical history of prostate cancer in 2000, CABG, hx of PE/dvt, peripheral artery disease, CAD s/p CABG, neuropathy , hld, htn, and diabetes who presented to the ED via EMS for altered mental status. Currently a patient of Dr. Denney/Dr. Centeno for recent diagnosis of metastatic colorectal cancer. He has partially completed palliative radiation to his right shoulder and was planned to begin dose attenuated palliative chemotherapy following radiation. Recently patient developed AMS and decline in physical function which led to his admission. Oncology consulted for goals of care discussion in the setting of his change in performance status and planned admission to [facility]. Past Med Surg Social Fam HX - Past Medical History Medical history: cancer, diabetes, hyperlipidemia, hypertension, peripheral artery disease, other Psychiatric history: no psych history - Social History Smoking Status: Former smoker Smokeless Tobacco Status: No Alcohol use: occasionally Drug use: none - Family History Father Hx Family Cancer: Yes (liver cancer) Medications and Allergies Aspirin Enteric Coated [Aspirin EC] 81 mg PO DAILY 02/16/17 [History] Carvedilol [Coreg] 25 mg PO BID 02/16/17 [History] Furosemide [Lasix] 20 mg PO DAILY 02/16/17 [History] Losartan Potassium [Cozaar] 100 mg PO DAILY 02/16/17 [History] Simvastatin [Zocor] 20 mg PO HS 02/16/17 [History] amLODIPine [Norvasc] 5 mg PO DAILY 02/16/17 [History] Docusate [Colace] 200 mg PO BID #120 capsule 03/03/17 [Rx] Magic Mouthwash [Magic Mouthwash BLM] 10 ml PO QID PRN #240 ml 03/04/17 [Rx] Saliva Stimulant [Biotene Moisturizing Rinse] 44.3 ml MM TID #1 bottle 03/04/17 [Rx] Oxycodone HCl 10 - 20 mg PO Q4H PRN #150 tab 03/09/17 [Rx] 3 Allergy/AdvReac Type Severity Reaction Status Date / Time Penicillins Allergy Severe Hives Verified 03/15/17 15:24 sulfamethoxazole AdvReac Vomiting Verified 03/15/17 15:24 [From Bactrim] trimethoprim [From Bactrim] AdvReac Vomiting Verified 03/15/17 15:24 ROS unobtainable: due to mental status, other (obtained selective information from family/chart review) Constitutional: Present: anorexia, fatigue, weakness, weight loss Respiratory: Present: dyspnea on exertion Additional comments: right shoulder pain Neurological: Present: confusion, paresthesias. Absent: focal weakness, syncope Psychiatric: Present: confusion, visual hallucinations Oncology - Exam - Constitutional Vitals: Temp Pulse Resp BP Pulse Ox 98.3 F 78 16 102/52 100 03/17/17 10:44 03/17/17 10:44 03/17/17 10:44 03/17/17 10:44 03/17/17 10:44 General appearance: no acute distress, no febrile - Head Head exam: Present: normal inspection - Eye Eye exam: Present: PERRL - ENT ENT exam: Present: mucous membranes dry - Respiratory Respiratory exam: Present: decreased breath sounds, CTAB - Cardiovascular Cardiovascular exam: Present: RRR, +S1, +S2 - GI/Abdominal GI/Abdominal exam: Present: normal bowel sounds, soft. Absent: tenderness - Extremities Exam Extremities exam: Present: pedal edema - Neurological Exam Neurological exam: Present: altered Additional comments: patient lethargic, likely due to pain/phenergan medication administration as patients family state he was more alert prior to this, responds to stimuli but quickly falls back to sleep - Skin Skin exam: Present: pallor, warm Consult Discharge Plan - Plan Referrals: Brea Franco [Primary Care Provider] -
--- NOTE | 2017-03-17 18:23 | Internal Med Progress Note ---
Date of Encounter: 03/17/17 Time of Encounter: 11:00 - Assessment and plan (1) Colon cancer metastasized to multiple sites Current Visit: Yes Status: Acute Assessment and plan: -Patient with history of colon cancer with metastases to liver and bone managed by Dr. Denney (hematology/oncology) -Hematology oncology consulted for recommendations and to discuss with family for goals of care (2) Bone metastases Current Visit: No Status: Acute Assessment and plan: -Patient with history of colon cancer with metastases to liver and bone managed by Dr. Denney (hematology/oncology) (3) Goals of care, counseling/discussion Current Visit: Yes Status: Acute Assessment and plan: -Discussed with family about goals of care as in the discussion additional testing came up. -Consult hematology oncology for discussion about any further management or testing that will be needed. (4) DVT prophylaxis Current Visit: Yes Status: Acute Assessment and plan: Heparin subcutaneous - Subjective Interval history: Patient resting comfortably in bed this afternoon on examination. - Constitutional Vitals: Temp Pulse Resp BP Pulse Ox 98.9 F 89 14 105/58 96 03/17/17 16:44 03/17/17 16:44 03/17/17 16:44 03/17/17 16:44 03/17/17 16:44 General appearance: Present: A&O X 2 - Cardiovascular Cardiovascular exam: Present: RRR, +S1, +S2. Absent: diastolic murmur, gallop, rubs, systolic murmur Internal Medicine: Result - Labs CBC & Chem 7: 03/16/17 05:45 03/16/17 05:45 - ABG Interpretation ABG results: PT/INR, D-dimer PT 12.4 Seconds (9.4-12.1) H 03/15/17 11:49 Consult Discharge Plan - Plan Referrals: Brea Franco [Primary Care Provider] -
[2017-03-17] MEDS ORDERED: Levofloxacin 750 MG/150 ML 750 MG/150 ML BAG IVPB SCH (20:00)
[2017-03-18] MEDS: *HR* OxyCODONE Immed Rel 5 MG TABLET PO PRN ×3 (03:59→18:57)
[2017-03-18] MEDS: *HR* Heparin 5,000 UNIT/ML VIAL SQ SCH ×2 (05:30→18:58)
[2017-03-18] MEDS: Insulin LISPRO 300 UNITS/3 ML VIAL SQ SCH ×3 (06:15→12:44)
[2017-03-18] MEDS: Aspirin Enteric Coated 81 MG Tablet PO SCH (08:38)
[2017-03-18] MEDS: MetroNIDAZOLE 500 MG/100 ML 500 MG/100 ML BAG IVPB SCH (08:38)
--- NOTE | 2017-03-18 09:41 | Palliative Progress Note ---
<Don Gallegos - Last Filed: 03/18/17 10:00> Date of Encounter: 03/18/17 Time of Encounter: 09:41 - Assessment and plan (1) Goals of care, counseling/discussion Current Visit: Yes Status: Acute Assessment and plan: Codes status [id number]. Oncology to continue with palliative radiation, no chemotherapy. Continue with physical therapy. Family has expressed that they are unable to care for the patient at home anymore and the patient has expressed to them he would like to be in a fdc. PT report agrees with placement. Plan to discharge to [facility]. Pain: Continues to have pain that is controlled while on medication ( roxicodone 10mg), but doesn't last through net dosing. Reminded patient that medication is there if he needs it, and needs to ask for it. Patient understands. Recommend continuing roxicodone 10mg q4h prn, may increase o 10mg q2h prn if patient is asking for it regularly and it helps relieve pain without significant adverse effects. (2) Altered mental status Current Visit: Yes Status: Resolved Assessment and plan: Patient is much improved from initial presentation, still has confusion according to family members that started about 2-3 weeks prior. Qualifiers: Altered mental status type: transient alteration of awareness Qualified Code(s): R40.4 - Transient alteration of awareness (3) Colon cancer metastasized to multiple sites Current Visit: Yes Status: Acute Assessment and plan: Continue per Oncology plan. (4) Tfitl-or-whwsanm kidney injury Current Visit: Yes Status: Acute Assessment and plan: Noted Hematuria in kumar bag, no recent labwork. Continue per plan of Hospitalist. Qualifiers: Acute renal failure type: unspecified Chronic kidney disease stage: stage 4 (severe) Qualified Code(s): N17.9 - Acute kidney failure, unspecified; N18.4 - Chronic kidney disease, stage 4 (severe); N18.4 - Chronic kidney disease , stage 4 (severe); N18.4 - Chronic kidney disease, stage 4 (severe); N18.4 - Chronic kidney disease, stage 4 (severe) (5) History of prostate cancer Current Visit: Yes Status: Chronic - Time Spent With Patient Total time spent is greater than 50% in coordination of care (as documented) at patient's floor/unit and/or counseling patient: - Subjective Interval history: Patient did well overnight, still complaining of pain of legs, back and shoulder. Pain medication (roxicdone) helped, but has worn off after 3-4 hours. Patient has not asked for additional medication. Patient reports constant ache of legs back and shoulder. Patient did not have significant sedation while on medication. Reports regular bowels movements and normal appetite. Noted: hematuria in cath bag, informed nurse to inform Dr. Blackwell, no recent labs. No fevers, chills, sweats, nausea, vomiting, shortness of breath, abdominal pain , loss of sensation. Does have chest pain with palpation over right ribs, consistent with finding of mets. - Constitutional Vitals: Abnormal lab results RBC 3.29 M/mcL (4.19-5.50) L 03/16/17 05:45 Hgb 9.6 g/dL (12.9-16.9) L 03/16/17 05:45 Hct 30.2 % (37.5-50.1) L 03/16/17 05:45 RDW 14.9 % (11.5-14.5) H 03/16/17 05:45 Nucleated RBCs/100 WBC 0.2 /100 WBC (0) H 03/16/17 05:45 PT 12.4 Seconds (9.4-12.1) H 03/15/17 11:49 APTT 24.0 Seconds (26.0-36.0) L 03/15/17 11:49 Potassium 5.6 mEq/L (3.5-5.1) H 03/16/17 05:45 Carbon Dioxide 22 mEq/L (23-29) L 03/16/17 05:45 BUN 89 mg/dL (8-23) H 03/16/17 05:45 Creatinine 2.64 mg/dL (0.70-1.30) H 03/16/17 05:45 Est GFR ( Amer) 28 (> 60) L 03/16/17 05:45 Est GFR (Non-Af Amer) 23 (> 60) L 03/16/17 05:45 BUN/Creatinine Ratio 34 (6-26) H 03/16/17 05:45 POC Glucose 150 (58-89) H 03/18/17 05:49 Calculated Osmolality 311 (280-300) H 03/16/17 05:45 Calcium 7.6 mg/dL (8.6-10.3) L 03/16/17 05:45 Magnesium 2.9 mg/dL (1.6-2.6) H 03/16/17 05:45 Direct Bilirubin 0.3 mg/dL (0.0-0.2) H 03/15/17 11:49 AST 70 Units/L (13-39) H 03/15/17 11:49 Globulin 3.8 g/dL (2.4-3.5) H 03/15/17 11:49 Albumin/Globulin Ratio 0.9 (1.1-2.2) L 03/15/17 11:49 Urine Ketones Trace mg/dL (Negative) H 03/15/17 13:19 Urine Bilirubin Small (Negative) H 03/15/17 13:19 Urine Microscopic RBC 5-15 per hpf (0-3) H 03/15/17 13:19 Ur Squamous Epith Cells Moderate per lpf (None-Few) H 03/15/17 13:19 General appearance: Present: cooperative, no acute distress Exam: alert and oriented x 4, some inappropriate answers with questioning, but not confused - Head Head exam: Present: atraumatic, normal inspection, normocephalic - Eye Eye exam: Present: EOMI, PERRL - ENT ENT exam: Present: mucous membranes moist - Respiratory Respiratory exam: Present: CTAB. Absent: accessory muscle use, rales, respiratory distress, rhonchi, wheezes, tachypnea - Cardiovascular Cardiovascular exam: Present: RRR, +S1, +S2 - GI/Abdominal GI/Abdominal exam: Present: normal bowel sounds, soft. Absent: distended, tenderness - Additional comments: cath in place, dark brown urine noted in bag. - Extremities Exam Extremities exam: Present: normal inspection, tenderness (tenderness reported, not worse with palpation.). Absent: pedal edema - Skin Skin exam: Present: dry, intact, normal color, warm. Absent: rash Palliative Quality Palliative Quality: Screen for Code Status: Yes, Screen for Goals of Care: Yes, Screen for Pain: Yes, If Pain Regimen Started, Initiate Bowel Regimen: Yes, Screen for Nausea/Vomitting: Yes Code Status: 03/16/17 09:13 CODE [Resuscitation Status: Active] [RES] Routine Comment: confirmed 03/16/17 Resuscitation Status: [id number] - Labs CBC & Chem 7: 03/16/17 05:45 03/16/17 05:45 Labs: Laboratory Results - last 24 hr 03/17/17 03/17/17 03/17/17 12:43 17:06 23:23 POC Glucose 185 H 223 H 161 H 03/18/17 05:49 POC Glucose 150 H - ABG Interpretation ABG results: PT/INR, D-dimer PT 12.4 Seconds (9.4-12.1) H 03/15/17 11:49 Consult Discharge Plan - Plan Referrals: Brea Franco [Primary Care Provider] - <Ravindra Mills - Last Filed: 03/18/17 15:22> Date of Encounter: 03/18/17 - Assessment and plan (1) Encephalopathy acute Current Visit: Yes Status: Acute - Time Spent With Patient Total time spent is greater than 50% in coordination of care (as documented) at patient's floor/unit and/or counseling patient: - Constitutional Vitals: Abnormal lab results RBC 3.29 M/mcL (4.19-5.50) L 03/16/17 05:45 Hgb 9.6 g/dL (12.9-16.9) L 03/16/17 05:45 Hct 30.2 % (37.5-50.1) L 03/16/17 05:45 RDW 14.9 % (11.5-14.5) H 03/16/17 05:45 Nucleated RBCs/100 WBC 0.2 /100 WBC (0) H 03/16/17 05:45 PT 12.4 Seconds (9.4-12.1) H 03/15/17 11:49 APTT 24.0 Seconds (26.0-36.0) L 03/15/17 11:49 Potassium 5.6 mEq/L (3.5-5.1) H 03/16/17 05:45 Carbon Dioxide 22 mEq/L (23-29) L 03/16/17 05:45 BUN 89 mg/dL (8-23) H 03/16/17 05:45 Creatinine 2.64 mg/dL (0.70-1.30) H 03/16/17 05:45 Est GFR ( Amer) 28 (> 60) L 03/16/17 05:45 Est GFR (Non-Af Amer) 23 (> 60) L 03/16/17 05:45 BUN/Creatinine Ratio 34 (6-26) H 03/16/17 05:45 POC Glucose 182 (58-89) H 03/18/17 10:53 Calculated Osmolality 311 (280-300) H 03/16/17 05:45 Calcium 7.6 mg/dL (8.6-10.3) L 03/16/17 05:45 Magnesium 2.9 mg/dL (1.6-2.6) H 03/16/17 05:45 Direct Bilirubin 0.3 mg/dL (0.0-0.2) H 03/15/17 11:49 AST 70 Units/L (13-39) H 03/15/17 11:49 Globulin 3.8 g/dL (2.4-3.5) H 03/15/17 11:49 Albumin/Globulin Ratio 0.9 (1.1-2.2) L 03/15/17 11:49 Urine Ketones Trace mg/dL (Negative) H 03/15/17 13:19 Urine Bilirubin Small (Negative) H 03/15/17 13:19 Urine Microscopic RBC 5-15 per hpf (0-3) H 03/15/17 13:19 Ur Squamous Epith Cells Moderate per lpf (None-Few) H 03/15/17 13:19 - Attending Attestation I examined this patient and my medical decision-making was reviewed with the Resident Physician. I agree with the documented findings, disposition and treatment plan as described except to the extent set forth below. Palliative Quality Code Status: 03/16/17 09:13 CODE [Resuscitation Status: Active] [RES] Routine Comment: confirmed 03/16/17 Resuscitation Status: [id number] - Labs CBC & Chem 7: 03/16/17 05:45 03/16/17 05:45 Labs: Laboratory Results - last 24 hr 03/17/17 03/17/17 03/18/17 17:06 23:23 05:49 POC Glucose 223 H 161 H 150 H 03/18/17 10:53 POC Glucose 182 H - ABG Interpretation ABG results: PT/INR, D-dimer PT 12.4 Seconds (9.4-12.1) H 03/15/17 11:49
--- NOTE | 2017-03-18 09:48 | Oncology Inp Progress Note ---
Date of Encounter: 03/18/17 Time of Encounter: 14:00 (1) Colon cancer metastasized to multiple sites Current Visit: Yes Status: Acute Assessment and plan: This morning I had a detailed conversation with the patient regarding his goals of care and his wish to continue or discontinue chemotherapy treatment. This is following the conversation yesterday which included a detailed summarization of his diagnosis, prognosis and treatment options. He confirmed again today that he wishes to go to [facility] for rehabilitation and not pursue chemotherapy treatments at this juncture. In discussion with patient and patients family they will likely eventually transition to hospice care at [facility]. Patient states he wishes for things to "be in Gods hands" and wishes to pursue a comfort care approach. After speaking with patient and patients family, he does request to finish palliative radiation treatments as these treatments have helped to reduce his pain and increase his mobility. I voiced my concern about the tremors and safety for radiation treatment, family state that he has had these tremors for months but have worsened over th e past few weeks into more pronounced jerking movements. Family state the tremors and uncontrolled movements have improved since admission and continue to improve. They do not wish to pursue further medical intervention or consultation for these tremors. They wish to speak with Dr. Centeno at /u on Tuesday prior to his radiation treatment. They were given appointments for radiation Tuesday/Tuesday, [facility] updated for [facility] transportation arrangements to/from [facility] for radiation. Oncology: Subj Interval history: Mr. Arguelles is awake and alert this morning, he was able to engage in conversation. He denies pain and is feeling well other than feeling uncomfortable laying in bed. We had a lengthy discussion regarding his wishes regarding his cancer treatment and goals of care earlier this morning that reconfirmed we are taking his desired approach. Discussion concluded with family this afternoon. - Constitutional Vitals: Vital Signs Temp Pulse Resp BP Pulse Ox 03/18/17 09:01 98/61 03/18/17 07:02 97.7 F 85 18 86/52 93 03/18/17 03:33 98.0 F 76 15 106/60 96 03/17/17 23:23 97.8 F 74 16 113/62 95 03/17/17 19:24 97.9 F 88 14 93/51 93 03/17/17 16:44 98.9 F 89 14 105/58 96 01/04/18 10:44 98.3 F 78 16 102/52 100 Intake and Output 03/17/17 03/18/17 03/18/17 23:59 07:59 15:59 Intake Total 250 / 250 100 / 100 120 / 120 Output Total 250 / 250 0 / 0 Balance 0 / 0 100 / 100 120 / 120 Intake: IV Fluids 250 / 250 100 / 100 Levaquin Premix 750mg/150 mL 150 / 150 750 mg In 150 ml @ 100 mls/hr IVPB Q48H [facility] Rx#:[id number] Flagyl Premix 500 MG/100 ML 500 100 / 100 100 / 100 mg In 100 ml @ 100 mls/hr IVPB Q8HR [facility] Rx#:[id number] Oral 0 / 0 0 / 0 120 / 120 Output: Urine 0 / 0 Catheter 250 / 250 Other: Meal Breakfast Percent of Meal Consumed 0% Weight 88.7 kg Blood Glucose* 161 150 Patient Weight 03/18/17 23:59 Weight 88.7 kg General appearance: cooperative, no acute distress, no febrile - Head Head exam: Present: normal inspection - Eye Eye exam: Present: PERRL - Respiratory Respiratory exam: Present: decreased breath sounds, CTAB - Cardiovascular Cardiovascular exam: Present: RRR, +S1, +S2 - GI/Abdominal GI/Abdominal exam: Present: normal bowel sounds, soft, tenderness - Extremities Exam Extremities exam: Absent: pedal edema - Neurological Exam Neurological exam: Present: alert, oriented X3, strengths equal and symetr throughout. Absent: no focal deficits Additional comments: chronic fine tremors, occasionally more pronounced - Skin Skin exam: Present: pallor, warm Oncology: Obj Data - Labs CBC & Chem 7: 03/16/17 05:45 03/16/17 05:45 Labs: Laboratory Results - last 24 hr 03/17/17 03/17/17 03/17/17 12:43 17:06 23:23 POC Glucose 185 H 223 H 161 H 03/18/17 05:49 POC Glucose 150 H - ABG Interpretation ABG results: PT/INR, D-dimer PT 12.4 Seconds (9.4-12.1) H 03/15/17 11:49 Consult Discharge Plan - Plan Referrals: Brea Franco [Primary Care Provider] -
[2017-03-18] MEDS: Saliva Stimulant 100ml BOTTLE MM SCH ×3 (12:44→21:18)
--- NOTE | 2017-03-18 18:15 | Internal Med Progress Note ---
Date of Encounter: 03/18/17 Time of Encounter: 13:00 - Assessment and plan (1) Colon cancer metastasized to multiple sites Current Visit: Yes Status: Acute Assessment and plan: -Patient with history of colon cancer with metastases to liver and bone managed by Dr. Denney (hematology/oncology) -Hematology oncology consulted for recommendations and to discuss with family for goals of care -Patient and patients family, he does request to finish palliative radiation treatments patient and patients family, he does request to finish palliative radiation treatments -They were given appointments for radiation Tuesday/Tuesday, [employer] updated for ECF transportation arrangements to/from ECF for radiation. (2) Bone metastases Current Visit: No Status: Acute Assessment and plan: -Patient with history of colon cancer with metastases to liver and bone managed by Dr. Denney (hematology/oncology) (3) Goals of care, counseling/discussion Current Visit: Yes Status: Acute Assessment and plan: -Discussed with family about goals of care as in the discussion additional testing came up. -Consult hematology oncology for discussion about any further management or testing that will be needed. -Patient and patients family, he does request to finish palliative radiation treatments -They were given appointments for radiation Tuesday/Tuesday, [employer] updated for ECF transportation arrangements to/from ECF for radiation. -Patient awaiting bed ECF (4) DVT prophylaxis Current Visit: Yes Status: Acute Assessment and plan: Heparin subcutaneous - Subjective Interval history: Patient resting comfortably in bed this afternoon on examination. Patient more alert and talkative this afternoon - Constitutional Vitals: Temp Pulse Resp BP Pulse Ox 97.9 F 72 14 91/43 93 03/18/17 14:29 03/18/17 14:29 03/18/17 14:29 03/18/17 14:29 03/18/17 14:29 General appearance: Present: A&O X 2, no acute distress - Cardiovascular Cardiovascular exam: Present: diastolic murmur, gallop, RRR, rubs, +S1, +S2, systolic murmur Internal Medicine: Result - Labs CBC & Chem 7: 03/16/17 05:45 03/16/17 05:45 - ABG Interpretation ABG results: PT/INR, D-dimer PT 12.4 Seconds (9.4-12.1) H 03/15/17 11:49 Consult Discharge Plan - Plan Referrals: Brea Franco [Primary Care Provider] -
[2017-03-19] MEDS: Insulin LISPRO 300 UNITS/3 ML VIAL SQ SCH ×5 (00:48→18:11)
[2017-03-19] MEDS: *HR* OxyCODONE Immed Rel 5 MG TABLET PO PRN ×3 (03:52→19:15)
[2017-03-19] MEDS: *HR* Heparin 5,000 UNIT/ML VIAL SQ SCH ×2 (05:34→18:10)
[2017-03-19] MEDS: *HR* Promethazine 25 MG/ML VIAL IVP PRN (08:49)
[2017-03-19] MEDS: Aspirin Enteric Coated 81 MG Tablet PO SCH (08:58)
[2017-03-19] MEDS: Saliva Stimulant 100ml BOTTLE MM SCH ×3 (08:58→20:16)
--- NOTE | 2017-03-19 18:20 | Internal Med Progress Note ---
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 Denney (hematology/oncology) -Hematology oncology consulted for recommendations and to discuss with family for goals of care -Patient and patients family, he does request to finish palliative radiation treatments patient and patients family, he does request to finish palliative radiation treatments -They were given appointments for radiation Tuesday/Tuesday, NECKTIES PAINTER updated for ECF transportation arrangements to/from ECF for radiation. (2) Bone metastases Current Visit: No Status: Acute Assessment and plan: -Patient with history of colon cancer with metastases to liver and bone managed by Dr. Denney (hematology/oncology) (3) Goals of care, counseling/discussion Current Visit: Yes Status: Acute Assessment and plan: -Discussed with family about goals of care as in the discussion additional testing came up. -Consult hematology oncology for discussion about any further management or testing that will be needed. -Patient and patients family, he does request to finish palliative radiation treatments -They were given appointments for radiation Tuesday/Tuesday, NECKTIES PAINTER updated for ECF transportation arrangements to/from ECF for radiation. -Patient awaiting bed ECF (4) DVT prophylaxis Current Visit: Yes Status: Acute Assessment and plan: Heparin subcutaneous - Subjective Interval history: Patient resting comfortably in bed this afternoon on examination. Patient more alert and talkative this afternoon - Constitutional Vitals: Temp Pulse Resp BP Pulse Ox 98.3 F 80 14 94/58 100 03/19/17 16:12 03/19/17 16:12 03/19/17 16:12 03/19/17 16:12 03/19/17 16:12 General appearance: Present: A&O X 2, no acute distress - Cardiovascular Cardiovascular exam: Present: RRR, +S1, +S2. Absent: diastolic murmur, gallop, rubs, systolic murmur Internal Medicine: Result - Labs CBC & Chem 7: 03/16/17 05:45 03/16/17 05:45 - ABG Interpretation ABG results: PT/INR, D-dimer PT 12.4 Seconds (9.4-12.1) H 03/15/17 11:49 Consult Discharge Plan - Plan Referrals: Brea Franco [Primary Care Provider] -
[2017-03-20] MEDS: Insulin LISPRO 300 UNITS/3 ML VIAL SQ SCH ×4 (00:10→17:13)
[2017-03-20] MEDS: *HR* Heparin 5,000 UNIT/ML VIAL SQ SCH (06:24)
[2017-03-20] MEDS: Aspirin Enteric Coated 81 MG Tablet PO SCH (09:40)
[2017-03-20] MEDS: *HR* OxyCODONE Immed Rel 5 MG TABLET PO PRN ×2 (09:41→14:29)
[2017-03-20] MEDS: Saliva Stimulant 100ml BOTTLE MM SCH ×3 (09:43→21:29)
[2017-03-20 10:44] LABS: Hematocrit 28.1 % (37.5-50.1); Hemoglobin 8.9 g/dL (12.9-16.9)
[2017-03-20] MEDS ORDERED: Hyoscyamine SL 0.125 MG TAB.SUBL SL PRN (14:09)
[2017-03-20] MEDS ORDERED: Chloraseptic Spray 177 ML BOTTLE MM PRN (14:12)
[2017-03-20] MEDS: Hyoscyamine SL 0.125 MG TAB.SUBL SL PRN (16:33)
[2017-03-20] MEDS ORDERED: *HR* HYDROmorphone 2 MG/ML SYRINGE IVP PRN (16:45)
--- NOTE | 2017-03-20 16:48 | Internal Med Progress Note ---
Date of Encounter: 03/20/17 Time of Encounter: 11:00 - Assessment and plan (1) Colon cancer metastasized to multiple sites Current Visit: Yes Status: Acute Assessment and plan: -Patient was noted to have bleeding; hemoglobin stable. -Patient has a history of colon cancer with metastases to liver and bone managed by Dr. Denney (hematology/oncology) -Hematology oncology consulted for recommendations and to discuss with family for goals of care -Patient and patients family, he does request to finish palliative radiation treatments patient and patients family, he does request to finish palliative radiation treatments -They were given appointments for radiation Tuesday/Tuesday, FILTER PLANT SUPERVISOR updated for ECF transportation arrangements to/from ECF for radiation. (2) Bone metastases Current Visit: No Status: Acute Assessment and plan: -Patient with history of colon cancer with metastases to liver and bone managed by Dr. Denney (hematology/oncology) (3) Goals of care, counseling/discussion Current Visit: Yes Status: Acute Assessment and plan: -Discussed with family about goals of care as in the discussion additional testing came up. -Consult hematology oncology for discussion about any further management or testing that will be needed. -Patient and patients family, he does request to finish palliative radiation treatments -They were given appointments for radiation Tuesday/Tuesday, FILTER PLANT SUPERVISOR updated for ECF transportation arrangements to/from ECF for radiation. -Patient awaiting bed ECF (4) DVT prophylaxis Current Visit: Yes Status: Acute Assessment and plan: Heparin subcutaneous discontinued secondary to bleeding as well as daily aspirin - Subjective Interval history: She not communicating much this morning and "gurgling " due to secretions and throat Staff also reported bleeding from rectum secondary to metastatic colon cancer. Hemoglobin stable at 8.9 (10.5 on admission) Patient awaiting bed at [facility] for palliative/hospice care - Constitutional Vitals: Temp Pulse Resp BP Pulse Ox 97.8 F 71 22 104/54 93 03/20/17 16:26 03/20/17 16:26 03/20/17 16:26 03/20/17 16:26 03/20/17 16:26 General appearance: Present: A&O X 2, no acute distress Internal Medicine: Result - Labs CBC & Chem 7: 03/20/17 10:23 03/16/17 05:45 Labs: Short CBC 03/20/17 Range/Units 10:23 Hgb 8.9 L (12.9-16.9) g/dL Hct 28.1 L (37.5-50.1) % - ABG Interpretation ABG results: PT/INR, D-dimer PT 12.4 Seconds (9.4-12.1) H 03/15/17 11:49 Consult Discharge Plan - Plan Referrals: Brea Franco [Primary Care Provider] -
[2017-03-21] MEDS: Insulin LISPRO 300 UNITS/3 ML VIAL SQ SCH ×2 (00:37→06:40)
[2017-03-21 07:11] VITALS: BP 106/53
--- NOTE | 2017-03-21 07:53 | Palliative Progress Note ---
Date of Encounter: 03/21/17 Time of Encounter: 07:25 - Assessment and plan (1) Encephalopathy acute Current Visit: Yes Status: Acute Assessment and plan: Still present, family wishes to have patient finish out his issues in therapy and then going to hospice. Patient is hospice eligible whenever the family is ready. (2) Bone metastases Current Visit: No Status: Acute Assessment and plan: 4 radiation therapy this week. (3) Goals of care, counseling/discussion Current Visit: Yes Status: Acute Assessment and plan: Currently DNR [facility]. Patient is awaiting placement at [facility] as the family cannot care for him, family is requesting that the patient get his radiation therapy. This is scheduled for this week. Is hospice eligible whenever patient and family are ready. - Time Spent With Patient Total time spent is greater than 50% in coordination of care (as documented) at patient's floor/unit and/or counseling patient: - Subjective Interval history: Communication. Patient is responsive to voice, but does not really speak per airway noise and secretion noise. No overnight events noted. Did note that the patient was poorly communicative yesterday with lots of secretion noise than as well. - Constitutional Vitals: Abnormal lab results RBC 3.29 M/mcL (4.19-5.50) L 03/16/17 05:45 Hgb 8.9 g/dL (12.9-16.9) L 03/20/17 10:23 Hct 28.1 % (37.5-50.1) L 03/20/17 10:23 RDW 14.9 % (11.5-14.5) H 03/16/17 05:45 Nucleated RBCs/100 WBC 0.2 /100 WBC (0) H 03/16/17 05:45 PT 12.4 Seconds (9.4-12.1) H 03/15/17 11:49 APTT 24.0 Seconds (26.0-36.0) L 03/15/17 11:49 Potassium 5.6 mEq/L (3.5-5.1) H 03/16/17 05:45 Carbon Dioxide 22 mEq/L (23-29) L 03/16/17 05:45 BUN 89 mg/dL (8-23) H 03/16/17 05:45 Creatinine 2.64 mg/dL (0.70-1.30) H 03/16/17 05:45 Est GFR ( Amer) 28 (> 60) L 03/16/17 05:45 Est GFR (Non-Af Amer) 23 (> 60) L 03/16/17 05:45 BUN/Creatinine Ratio 34 (6-26) H 03/16/17 05:45 POC Glucose 151 (58-89) H 03/21/17 05:59 Calculated Osmolality 311 (280-300) H 03/16/17 05:45 Calcium 7.6 mg/dL (8.6-10.3) L 03/16/17 05:45 Magnesium 2.9 mg/dL (1.6-2.6) H 03/16/17 05:45 Direct Bilirubin 0.3 mg/dL (0.0-0.2) H 03/15/17 11:49 AST 70 Units/L (13-39) H 03/15/17 11:49 Globulin 3.8 g/dL (2.4-3.5) H 03/15/17 11:49 Albumin/Globulin Ratio 0.9 (1.1-2.2) L 03/15/17 11:49 Urine Ketones Trace mg/dL (Negative) H 03/15/17 13:19 Urine Bilirubin Small (Negative) H 03/15/17 13:19 Urine Microscopic RBC 5-15 per hpf (0-3) H 03/15/17 13:19 Ur Squamous Epith Cells Moderate per lpf (None-Few) H 03/15/17 13:19 General appearance: Present: no acute distress - Head Head exam: Present: atraumatic, normal inspection - Eye Eye exam: Present: normal appearance - ENT ENT exam: Present: mucous membranes moist - Neck Neck exam: Present: normal inspection - Respiratory Respiratory exam: Present: rhonchi - Cardiovascular Cardiovascular exam: Present: RRR - GI/Abdominal GI/Abdominal exam: Present: normal bowel sounds, soft. Absent: tenderness - Extremities Exam Extremities exam: Absent: tenderness - Neurological Exam Neurological exam: Present: altered (Sponsored to voice but not communicating) - Psychiatric Psychiatric exam: Absent: agitated, anxious - Skin Skin exam: Present: dry, warm Palliative Quality Palliative Quality: Screen for Code Status: Yes, Screen for Goals of Care: Yes, Screen for Pain: Yes, If Pain Regimen Started, Initiate Bowel Regimen: Yes, Screen for Nausea/Vomitting: Yes Code Status: 03/16/17 09:13 CODE [Resuscitation Status: Active] [RES] Routine Comment: confirmed 03/16/17 Resuscitation Status: [id number] - Labs CBC & Chem 7: 03/20/17 10:23 03/16/17 05:45 Labs: Laboratory Results - last 24 hr 03/20/17 03/20/17 03/20/17 10:23 11:57 16:32 Hgb 8.9 L Hct 28.1 L POC Glucose 215 H 211 H 03/21/17 03/21/17 00:12 05:59 Hgb Hct POC Glucose 159 H 151 H - ABG Interpretation ABG results: PT/INR, D-dimer PT 12.4 Seconds (9.4-12.1) H 03/15/17 11:49 Consult Discharge Plan - Plan Referrals: Brea Franco [Primary Care Provider] -
[2017-03-21] MEDS: Saliva Stimulant 100ml BOTTLE MM SCH (09:38)
[2017-03-21 09:50] LABS: Basophils % 0.1 %; Eosinophils # 0.1 K/mcL (0.0-0.6); Hematocrit 26.4 % (37.5-50.1); Hemoglobin 8.3 g/dL (12.9-16.9); Immature Granulocytes % 3.2 % (0-4); Lymphocytes % 12.3 %; Mean Corpuscular HGB Conc 31.4 g/dL (31.6-35.5); Mean Corpuscular Hemoglobin 29.4 pg (28.0-33.3); Mean Corpuscular Volume 93.6 fL (83.0-100.0); Mean Platelet Volume 9.9 fL (9.4-12.4); Monocytes # 0.9 K/mcL (0.0-1.3); Neutrophils # 5.5 K/mcL (1.6-8.9); Nucleated Red Blood Cells 0.3 /100 WBC (0); Platelet Count 198 K/mcL (140-400); Red Blood Count 2.82 M/mcL (4.19-5.50); Red Cell Distribution Width 16.6 % (11.5-14.5); Segmented Neutrophils % 71.4 %
[2017-03-21] MEDS ORDERED: Ketorolac 30 MG/ML VIAL IVP PRN (11:20)
--- NOTE | 2017-03-21 12:12 | Discharge Summary ---
Date of Encounter: 03/21/17 Time of Encounter: 11:00 - Discharge Diagnosis (1) Colon cancer metastasized to multiple sites Priority: Primary Status: Acute (2) Bone metastases Priority: Secondary Status: Acute (3) Goals of care, counseling/discussion Priority: Secondary Status: Acute - Discharge Medications Home Medications: Aspirin Enteric Coated [Aspirin EC] 81 mg PO DAILY 02/16/17 [History] Carvedilol [Coreg] 25 mg PO BID 02/16/17 [History] Furosemide [Lasix] 20 mg PO DAILY 02/16/17 [History] Losartan Potassium [Cozaar] 100 mg PO DAILY 02/16/17 [History] Simvastatin [Zocor] 20 mg PO HS 02/16/17 [History] amLODIPine [Norvasc] 5 mg PO DAILY 02/16/17 [History] Docusate [Colace] 200 mg PO BID #120 capsule 03/03/17 [Rx] Magic Mouthwash [Magic Mouthwash BLM] 10 ml PO QID PRN #240 ml 03/04/17 [Rx] Saliva Stimulant [Biotene Moisturizing Rinse] 44.3 ml MM TID #1 bottle 03/04/17 [Rx] Oxycodone HCl 10 - 20 mg PO Q4H PRN #150 tab 03/09/17 [Rx] Allergies/Adverse Reactions: 3 Allergy/AdvReac Type Severity Reaction Status Date / Time Penicillins Allergy Severe Hives Verified 03/15/17 15:24 sulfamethoxazole AdvReac Vomiting Verified 03/15/17 15:24 [From Bactrim] trimethoprim [From Bactrim] AdvReac Vomiting Verified 03/15/17 15:24 Date of admission: 03/15/17 22:54 Primary care physician: Brea Franco Consults: 03/16/17 18:14 Consult to Oncology Hematology [CONS] Routine Consulting Provider: Paresh Denney Reason for Consult: Goals of care Call Completed: No - Patient Status Disposition: Transfer SNF Condition: Fair - Discharge Instructions Follow Up With: Brea Franco [Primary Care Provider] - Forms: ED Satisfaction Letter Hospital course: Patient is 81-year-old male with past medical history significant for arthritis , DVT, diabetes, hyperlipidemia, hypertension, peripheral artery disease pulmonary embolus and metastatic colon cancer with liver and extensive bone metastases who presented to the ER on 03/15/17 due to altered mental status. Patient was diagnosed with metastatic colon cancer with liver and extensive bone metastases approximately 3 weeks ago. He is being treated by [facility] Dr. Denney and has been receiving radiation treatments. He is being cared for at home by his . She expressed to the ER physician the patient has been declining since his diagnosis. He has been hallucinating and is difficult to care for on her own. She has had a call squad several times since she is unable to move him on her own. EMS was called due to patient's altered mental state. According to ER records upon their arrival patient was found with oxygen saturations in the 70s on room air. He was placed on oxygen which did improve his SPO2. Upon arrival to the ED he was alert and oriented. Patient was admitted to the medical surgical floor for further management. Hematology/oncology was consulted in addition to palliative care with goals of care discussed and agreed upon by family for hospice/supportive care. Patient will be transferred to [facility] for ongoing management with hospice care. - Time Spent with Patient Total time spent providing and/or coordinating discharge services: Less than 30 minutes - Constitutional Vitals: Temp Pulse Resp BP Pulse Ox 100.1 F H 86 23 106/53 92 03/21/17 07:01 03/21/17 07:01 03/21/17 07:01 03/21/17 07:01 03/21/17 07:48 General appearance: Present: A&O X 2, no acute distress
--- NOTE | 2017-03-21 12:13 | Physician Discharge Referral ---
- Diagnosis (1) Colon cancer metastasized to multiple sites Priority: Primary Status: Acute (2) Bone metastases Priority: Primary Status: Acute (3) Goals of care, counseling/discussion Priority: Secondary Status: Acute - Transfer Medications Home Medications: Aspirin Enteric Coated [Aspirin EC] 81 mg PO DAILY 02/16/17 [History] Carvedilol [Coreg] 25 mg PO BID 02/16/17 [History] Furosemide [Lasix] 20 mg PO DAILY 02/16/17 [History] Losartan Potassium [Cozaar] 100 mg PO DAILY 02/16/17 [History] Simvastatin [Zocor] 20 mg PO HS 02/16/17 [History] amLODIPine [Norvasc] 5 mg PO DAILY 02/16/17 [History] Docusate [Colace] 200 mg PO BID #120 capsule 03/03/17 [Rx] Magic Mouthwash [Magic Mouthwash BLM] 10 ml PO QID PRN #240 ml 03/04/17 [Rx] Saliva Stimulant [Biotene Moisturizing Rinse] 44.3 ml MM TID #1 bottle 03/04/17 [Rx] Oxycodone HCl 10 - 20 mg PO Q4H PRN #150 tab 03/09/17 [Rx] Allergies/Adverse Reactions: 3 Allergy/AdvReac Type Severity Reaction Status Date / Time Penicillins Allergy Severe Hives Verified 03/15/17 15:24 sulfamethoxazole AdvReac Vomiting Verified 03/15/17 15:24 [From Bactrim] trimethoprim [From Bactrim] AdvReac Vomiting Verified 03/15/17 15:24 - Respiratory Orders Smoking Cessation: Smoking cessation has been advised. For more information, call the [place] Tobacco Quit Line at 6-871-FNYP-NOW. CERTIFICATION: I certify that the transfer of the above named patient to an Extended Care Facility is necessary for the continuing treatment of the diagnosis listed. The above information is true and accurate reflection of patient's current condition. Confidential - Redisclosure prohibited without a patient's written consent.
--- NOTE | 2017-03-21 13:03 | Oncology Inp Progress Note ---
<JumanaAgustinParesh S - Last Filed: 03/21/17 21:11> Date of Encounter: 03/21/17 (1) Colon cancer metastasized to multiple sites Status: Acute Oncology: Subj Interval history: Confused but alert. Only responds with "hello" but does not answer other questions meaningfully. Actively dying. Oral intake minimal. - Constitutional Vitals: Vital Signs Temp Pulse Resp BP Pulse Ox 03/21/17 07:48 92 03/21/17 07:01 100.1 F H 86 23 106/53 92 03/21/17 04:51 98.2 F 86 19 135/62 94 03/21/17 02:25 101.2 F H 82 20 87/55 92 03/21/17 00:09 100.9 F H 79 18 95/52 93 Intake and Output 03/21/17 03/21/17 03/22/17 08:59 16:59 00:59 Intake Total 0 / 0 240 / 240 Output Total 300 / 300 Balance -300 / -300 240 / 240 Intake: Oral 0 / 0 240 / 240 Output: Catheter 300 / 300 Other: Meal Breakfast Percent of Meal Consumed 100% Stool Characteristics Pasty Stool Color Brown Blood Tinged # Bowel Movements 1 Weight 87.679 kg Blood Glucose* 151 Patient Weight 03/22/17 00:59 Weight 87.679 kg General appearance: disheveled, mild distress - Head Head exam: Present: atraumatic, normal inspection, normocephalic - Eye Eye exam: Present: normal appearance, conjuntiva pink - ENT ENT exam: Present: mucous membranes moist, normal exam - Neck Neck exam: Present: full ROM, normal inspection - Respiratory Respiratory exam: Present: decreased breath sounds, rhonchi - Cardiovascular Cardiovascular exam: Present: RRR - GI/Abdominal GI/Abdominal exam: Present: normal bowel sounds, soft - Extremities Exam Extremities exam: Present: normal inspection, pedal edema - Neurological Exam Neurological exam: Present: altered, speech deficit Oncology: Obj Data - Labs CBC & Chem 7: 03/21/17 09:07 03/16/17 05:45 Labs: Laboratory Results - last 24 hr 03/21/17 03/21/17 03/21/17 00:12 05:59 09:07 WBC 7.7 RBC 2.82 L Hgb 8.3 L Hct 26.4 L MCV 93.6 MCH 29.4 MCHC 31.4 L RDW 16.6 H Plt Count 198 MPV 9.9 Immature Gran % 3.2 Seg Neutrophils % 71.4 Lymphocytes % 12.3 Monocytes % 12.0 Eosinophils % 1.0 Basophils % 0.1 Neutrophils # 5.5 Lymphocytes # 1.0 Monocytes # 0.9 Eosinophils # 0.1 Basophils # 0.0 Nucleated RBCs/100 WBC 0.3 H POC Glucose 159 H 151 H - ABG Interpretation ABG results: PT/INR, D-dimer PT 12.4 Seconds (9.4-12.1) H 03/15/17 11:49 Consult Discharge Plan - Plan Referrals: Brea Franco [Primary Care Provider] - - Attending Attestation I examined this patient and my medical decision-making was reviewed with the Advanced Practice Nurse. I agree with the documented findings, disposition and treatment plan as described except to the extent set forth below. He is actively dying. Clinically appears uremic from LUIS ARMANDO. Confused and lethargic. Expect him to in next few days to weeks. Radiation therapy discontinued. He is not a treatment candidate. D/W daughter and today. Emphasized being with him during his last few days alive. They wanted to take home; this will unlikely given his grave condition. He will be discharged to [facility] with hospice He is DNR. All questions answered. <Kailey Magana - Last Filed: 03/22/17 08:53> Date of Encounter: 03/21/17 Time of Encounter: 12:00 (1) Colon cancer metastasized to multiple sites Status: Acute Assessment and plan: Upon examination today it was evident that Mr. Arguelles has declined clinically over the weekend. I spoke with the hospitalist Dr. Blackwell who has cared for him during most of his entire stay, Dr. Blackwell agrees with assessment and feels as though the patient is actively dying. The plan for today involved Mr. Arguelles [facility] for [facility] then to the ECF, however, given his recent decline I discussed with Dr. Blackwell that I do no believe that radiation will be safe nor beneficial at this time, he agrees. I updated CYTOTECHNOLOGIST/HISTOTECHNOLOGIST and radiation treatment staff. I also called patients daughter, Laina, and discussed patients decline and reasoning behind not pursuing his final two radiation treatments at this time, Laina agrees and again verifies plan for patient to pursue comfort care, patient is a DNR. Mr. Arguelles is planned for discharge to ECF soon. Dr. Denney updated and has also assessed patient/spoken with family. Please refer to his attestation for further information. Oncology: Subj Interval history: Mr. Arguelles was alert but with minimal response. He was not able to follow commands at my time of assessment. No acute distress noted, no symptoms of pain - Constitutional Vitals: Vital Signs Temp Pulse Resp BP Pulse Ox 03/21/17 07:48 92 03/21/17 07:01 100.1 F H 86 23 106/53 92 03/21/17 04:51 98.2 F 86 19 135/62 94 03/21/17 02:25 101.2 F H 82 20 87/55 92 03/21/17 00:09 100.9 F H 79 18 95/52 93 03/20/17 16:26 97.8 F 71 22 104/54 93 Intake and Output 03/20/17 03/21/17 03/21/17 23:59 07:59 15:59 Intake Total 0 / 0 Output Total 300 / 300 Balance -300 / -300 Intake: Oral 0 / 0 Output: Catheter 300 / 300 Other: Meal Breakfast Percent of Meal Consumed 0% Stool Size Small Stool Consistency loose soft Stool Characteristics Pasty Stool Color Brown Blood Tinged # Bowel Movements 1 Weight 87.679 kg Blood Glucose* 211 151 Patient Weight 03/21/17 23:59 Weight 87.679 kg General appearance: disheveled, no febrile - Head Head exam: Present: atraumatic - Respiratory Respiratory exam: Present: decreased breath sounds - Cardiovascular Cardiovascular exam: Present: RRR, +S1, +S2 - GI/Abdominal GI/Abdominal exam: Present: normal bowel sounds, soft - Extremities Exam Extremities exam: Present: pedal edema - Expanded Lower Extremity Exam Lower leg exam: Present: swelling - Neurological Exam Neurological exam: Present: alert, altered - Psychiatric Additional comments: calm without agitation - Skin Skin exam: Present: pallor, warm. Absent: mottled Oncology: Obj Data - Labs CBC & Chem 7: 03/21/17 09:07 03/16/17 05:45 - ABG Interpretation ABG results: PT/INR, D-dimer PT 12.4 Seconds (9.4-12.1) H 03/15/17 11:49
[2017-03-21] MEDS: Hyoscyamine SL 0.125 MG TAB.SUBL SL PRN (14:27)
== END 2017-03-21 14:30 | DRG 374 ==
LOC: 2ANU 11:24 → EMEROO 11:24 → 3BNU 16:27 → SUATTDRO 22:54 → 3ANU 03-17 02:05
PROVIDERS: ADMIT Internal Medicine; ATTEND Hospitalist